=== PATIENT | female | born 1990 | race Caucasian/White ===

== ENCOUNTER 2020-03-30 08:53 | Inpatient (IN) ==
--- NOTE | 2020-03-30 10:11 | Obstetrical Progress Note ---
Date of Service March 30, 2020 Subjective Met pt and spouse Reviewed PNC SROM at 0700HRS - Clear fluid on 03/30/20 FHR; CAT1 CTx; Minimal VE; ft/thick/anterior EFW 7-8Lbs Bedside sono : VT GBS culx repeated discussed Ancef use . pt had hx of PCN rxn- Rash discussed Ancef has 4-10% cross reactivity. Pt has agrees to try Ancef Results & Data ([facility]) Vital Signs (Past 12 Hours) Vital Signs Temp Pulse Resp BP 03/30/20 09:13 37.0 C 88 20 130/70 03/30/20 09:04 88 130/70
[2020-03-30] MEDS ORDERED: OXYTOCIN 30 UNITS/500 ML BAG IV PRN ×2 (10:12→12:37)
[2020-03-30] MEDS ORDERED: CEFAZOLIN 2000MG 2,000 MG/15 ML SYR IV ONE (10:30)
[2020-03-30 10:32] LABS: Hematocrit (blood only) 36.7 % (37-47); Hemoglobin 12.1 g/dL (12.0-16.0); Mean Corpuscular Hemoglobin 26.8 pg (25-34); Mean Corpuscular Volume 81.2 fL (80-100); Platelet Count 323 K/uL (130-400); RDW Coefficient of Variation 15.5 % (11.5-14.5); RDW Standard Deviation 45.2 fL (36.4-46.3); Red Blood Count 4.52 M/uL (4.2-5.4); White Blood Count 10.86 K/uL (4.8-10.8)
[2020-03-30 10:49] LABS: Alanine Aminotransferase 19 U/L (12-78); Albumin Level 2.5 gm/dl (3.4-5.0); Aspartate Aminotransferase 14 U/L (15-37); BUN Creatinine Ratio 21.8 (10-20); Blood Urea Nitrogen 11 mg/dl (7-18); Calcium 9.3 mg/dl (8.5-10.1); Carbon Dioxide 20 mmol/L (21-32); Chloride 106 mmol/L (98-107); Creatinine Clr Calc Pharmacy 231.1 ml/min; Est GFR (African American) > 150.0; Est GFR (Non-African American) 131.7; Glucose 75 mg/dl (70-99); Potassium 3.9 mmol/L (3.5-5.1); Sodium 138 mmol/L (136-145)
[2020-03-30 10:52] LABS: Albumin Globulin Ratio 0.6 (0.9-2); Alkaline Phosphatase 94 U/L (45-117); Bilirubin,Total 0.2 mg/dl (0.2-1); Globulin 4.5 gm/dl (2.5-4.0)
[2020-03-30] MEDS: LACTATED RINGER'S 1,000 ML IV PRN ×3 (11:22→23:01)
--- NOTE | 2020-03-30 12:09 | Obstetrical Progress Note ---
Date of Service March 30, 2020 Assessment & Plan Admission and Anticipated Discharge Date Admission Date: March 30, 2020 Subjective Pt doing well FHR; CAT1 SROM @ 0700HRS Minimal ctx VE; cervix is thick and closed [place] bulb placed in cervix w/o difficulty 30 CC saline in bulb will start Pitocin augmentation Results & Data ([facility]) Vital Signs (Past 12 Hours) Vital Signs Temp Pulse Resp BP 03/30/20 11:25 36.9 C 82 18 03/30/20 11:24 82 122/69 03/30/20 09:13 37.0 C 88 20 130/70 03/30/20 09:04 88 130/70
--- NOTE | 2020-03-30 22:15 | Obstetrical Progress Note ---
Date of Service March 30, 2020 Assessment & Plan Admission and Anticipated Discharge Date Admission Date: March 30, 2020 Subjective Pt doing well FHR; CAT1 Ctx; 2-4mins VE: 5/75/-1 Pit 20Mu Will continue with pit augmentation Pit limit increased to 30 MU Results & Data ([facility]) Vital Signs (Past 12 Hours) Vital Signs Temp Pulse Resp BP 03/30/20 22:08 79 142/68 H 03/30/20 21:10 36.8 C 18 03/30/20 21:09 82 123/75 03/30/20 20:10 85 18 127/68 03/30/20 19:15 36.7 C 78 20 129/77 03/30/20 18:10 85 120/69 03/30/20 17:09 36.8 C 85 20 128/70 03/30/20 16:13 78 131/76 03/30/20 15:10 91 H 138/77 03/30/20 14:11 82 119/74 03/30/20 13:09 36.9 C 87 18 127/62 03/30/20 12:08 84 129/65 03/30/20 11:25 36.9 C 82 18 03/30/20 11:24 82 122/69
[2020-03-30] MEDS ORDERED: BUPIVACAINE 0.25% 30 ML VIAL ONE (22:22)
[2020-03-30] MEDS ORDERED: fentaNYL citrate 100 MCG/2 ML VIAL ONE (22:22)
[2020-03-30] MEDS ORDERED: ePHEDrine sulfate 50 MG/ML AMP ONE (22:22)
[2020-03-30] MEDS ORDERED: fentaNYL 2MCG/ML ROPIV 1.25MG/ML 100 ML BAG EPI ONE (22:23)
[2020-03-30] MEDS ORDERED: Nursing to Pharmacy Communication ONE (22:25)
[2020-03-30] MEDS ORDERED: NALOXONE HCL 1 MG in SODIUM CHLORIDE 0.9% 1000ML 1,000 ML IV PRN (23:22)
[2020-03-30] MEDS ORDERED: PROMETHAZINE HCL 6.25 MG in SODIUM CHLORIDE 0.9% 50 ML IV PRN (23:22)
[2020-03-30] MEDS ORDERED: ONDANSETRON INJ 2 MG/ML 2 ML VIAL IV PRN (23:22)
[2020-03-30] MEDS ORDERED: ePHEDrine sulfate 50 MG/ML AMP IV PRN (23:22)
[2020-03-30] MEDS ORDERED: NALBUPHINE HCL INJ 10 MG/ML AMP IV PRN (23:22)
[2020-03-30] MEDS ORDERED: fentaNYL 2MCG/ML ROPIV 1.25MG/ML 100 ML BAG EPI PRN (23:22)
[2020-03-30] MEDS ORDERED: NALOXONE HCL 0.4 MG/1 ML VIAL/CARP IV PRN (23:22)
[2020-03-30] MEDS ORDERED: DiphenhydrAMINE HCL 50 MG/ML VIAL IV PRN (23:22)
--- NOTE | 2020-03-30 23:22 | Anesthesiology Consultation ---
Date of Service March 30, 2020 Assessment & Plan Chart Review Chart Review: Patient NOT seen in Pre Admission Testing and Acceptable Risk for Labor Epidural Consults Requested none ASA ASA3 Proposed Anesthesia Anesthesia Type: Labor Epidural Risk / Benefits Reviewed With: PT / POA / Parent / Guardian, Accepts Plan and Informed Consent Obtained History Height/Weight Height: 5 ft 3 in Weight: 137.438 kg Allergies Allergy/AdvReac Type Severity Reaction Status Date / Time Penicillins Allergy Unknown Unverified 12/15/09 02:21 Medications Home Medications Medication Instructions Recorded Confirmed Last Taken PNV cmb#95-ferrous fumarate-FA 1 tab PO DAILY 03/30/20 03/30/20 03/30/20 08:00 [] metformin 1,000 mg PO BID 03/30/20 03/30/20 03/30/20 08:00 Active Medications Generic Name Dose Route Start Last Admin Trade Name Freq PRN Reason Stop Dose Admin Lactated Ringer's 1,000 mls @ 125 mls/hr 03/30/20 10:12 03/30/20 23:01 Lr IV 04/01/20 10:11 125 mls/hr .Q8H PRN Administration L&D Protocol Protocol Oxytocin 30 units in 500 mls @ 20 mls/hr 03/30/20 12:37 03/30/20 20:20 Pitocin IV 04/29/20 12:36 1.2 units/hr .Q24H PRN 20 mls/hr Labor Induction/Augmentation Titration Protocol 1.2 UNITS/HR NPO Date Last Intake of Fluids: 03/30/20 Time Last Intake of Fluids: 21:00 Date Last Intake of Solids: 03/30/20 Time Last Intake of Solids: 08:00 Past Medical History Medical History Diabetes mellitus, type 2 Exercise / Class Metabolic Activity II 4-5 Yardwork/Stairs/Walk up hill Past Anesthesia History No Hx of Anesthesia Complications and No Family Hx of Anesthesia Complications History of PONV No Hx of PONV and No Hx of Motion Sickness Social History Smoking Status: Never smoker Do You Dip or Chew Tobacco: No Hx Alcohol Use: No Hx Substance Use: No Physical Exam Vital Signs Last Vital Signs Temp 36.8 C 03/30/20 21:10 Pulse 85 03/30/20 23:19 Resp 18 03/30/20 22:08 BP 119/61 03/30/20 23:19 Pulse Ox 98 03/30/20 23:17 ENMT Mouth: no dentition abnormality Thyromental Distance: > or= 3.5 Finger Breadths Mallampati Class: II Neck normal visual inspection Respiratory normal respiratory effort Auscultation: lungs clear to auscultation bilaterally Cardiovascular Rate/Rhythm: regular rate and regular rhythm Psychiatric Orientation: alert Testing Laboratory Results 03/30/20 10:18 03/30/20 10:18 03/30/20 03/30/20 18:11 13:53 POC Glucose 75 72
[2020-03-31] MEDS ORDERED: OXYTOCIN 20 UNITS in LACTATED RINGER'S 1,000 ML IV SCH (00:17)
[2020-03-31] MEDS: CEFAZOLIN 1000MG 1,000 MG/7.5 ML SYR IV PRN ×2 (01:36→09:46)
[2020-03-31] MEDS ORDERED: CEFAZOLIN 3000MG 65 ML IV SCH (06:00)
[2020-03-31] MEDS ORDERED: CITRIC ACID/SODIUM CITRATE 15 ML UDC PO SCH (06:00)
--- NOTE | 2020-03-31 06:48 | Obstetrical Progress Note ---
Date of Service March 31, 2020 Assessment & Plan Admission and Anticipated Discharge Date Admission Date: March 30, 2020 Subjective Pt doing well Epidural in place FHR;CAT1 CTX 2-3MINS PIT; 30MU VE 5-6/50-/-1 IUPC and scalp electrode placed Results & Data ([facility]) Vital Signs (Past 12 Hours) Vital Signs Temp Pulse Resp BP Pulse Ox 03/31/20 06:44 74 134/78 03/31/20 06:42 78 98 03/31/20 06:37 78 99 03/31/20 06:32 82 97 03/31/20 06:30 69 132/79 03/31/20 06:27 79 99 03/31/20 06:25 18 03/31/20 06:22 69 98 03/31/20 06:17 75 99 03/31/20 06:14 75 142/79 H 03/31/20 06:12 71 98 03/31/20 06:07 74 98 03/31/20 06:02 74 98 03/31/20 05:59 76 126/78 03/31/20 05:57 74 99 03/31/20 05:55 16 03/31/20 05:52 75 98 03/31/20 05:47 74 98 03/31/20 05:44 81 123/68 03/31/20 05:42 75 99 03/31/20 05:37 81 99 03/31/20 05:32 72 99 03/31/20 05:30 75 124/62 03/31/20 05:27 73 98 03/31/20 05:25 20 03/31/20 05:22 95 H 99 03/31/20 05:17 76 99 03/31/20 05:15 36.8 C 03/31/20 05:14 74 131/82 03/31/20 05:12 77 99 03/31/20 05:07 81 99 03/31/20 05:02 77 98 03/31/20 05:01 75 123/61 03/31/20 04:57 82 99 03/31/20 04:55 18 03/31/20 04:52 77 99 03/31/20 04:47 82 99 03/31/20 04:45 70 133/75 03/31/20 04:42 85 99 03/31/20 04:37 83 98 05/22/20 04:32 77 98 05/22/20 04:29 90 136/87 05/22/20 04:27 80 96 05/22/20 04:26 79 93 05/22/20 04:25 16 05/22/20 04:22 79 96 05/22/20 04:17 75 96 05/22/20 04:15 76 130/79 05/22/20 04:12 78 96 05/22/20 04:07 79 95 05/22/20 04:02 76 95 05/22/20 03:59 81 122/70 05/22/20 03:57 77 96 05/22/20 03:55 16 05/22/20 03:52 80 96 05/22/20 03:47 80 96 05/22/20 03:44 69 125/72 05/22/20 03:42 74 97 05/22/20 03:37 75 96 05/22/20 03:32 78 95 05/22/20 03:29 76 132/70 05/22/20 03:27 79 95 05/22/20 03:25 16 05/22/20 03:22 80 97 05/22/20 03:20 36.9 C 05/22/20 03:19 78 94 05/22/20 03:17 79 95 05/22/20 03:14 74 126/73 05/22/20 03:12 79 95 05/22/20 03:10 81 93 05/22/20 03:07 79 95 05/22/20 03:03 78 94 05/22/20 03:02 80 95 05/22/20 02:59 77 120/67 05/22/20 02:57 78 95 05/22/20 02:56 74 94 05/22/20 02:55 18 05/22/20 02:52 80 96 05/22/20 02:47 78 96 05/22/20 02:44 75 124/69 94 05/22/20 02:42 78 96 05/22/20 02:37 73 96 05/22/20 02:32 76 97 05/22/20 02:29 63 132/75 05/22/20 02:27 72 97 05/22/20 02:25 18 05/22/20 02:22 79 97 05/22/20 02:17 72 97 05/22/20 02:14 68 136/67 05/22/20 02:12 71 98 05/22/20 02:07 70 98 05/22/20 02:02 76 98 05/22/20 01:59 71 140/76 05/22/20 01:57 71 98 05/22/20 01:55 18 05/22/20 01:52 75 97 05/22/20 01:47 103 H 99 05/22/20 01:44 73 138/79 05/22/20 01:42 75 99 05/22/20 01:37 74 98 05/22/20 01:32 70 97 05/22/20 01:29 66 136/75 05/22/20 01:27 71 98 05/22/20 01:25 16 05/22/20 01:22 74 97 05/22/20 01:17 36.8 C 77 98 05//20 01:14 68 130/70 05/22/20 01:12 74 97 05/22/20 01:07 74 97 05/ 01:02 75 98 05/22/20 00:59 72 128/79 05/22/20 00:57 76 98 05/22/20 00:55 16 05/22/20 00:52 69 98 05/22/20 00:47 80 98 05/22/20 00:43 77 16 126/74 05/22/20 00:42 88 99 05/22/20 00:37 75 98 05/22/20 00:34 75 90 05/22/20 00:32 69 97 05/22/20 00:27 70 97 05/22/20 00:25 16 05/22/20 00:22 74 98 05/22/20 00:19 70 109/57 L 05/22/20 00:18 16 05/22/20 00:17 71 97 05/22/20 00:12 68 98 05/22/20 00:07 71 98 05/22/20 00:03 82 16 110/63 05/22/20 00:02 79 97 05/21/20 23:57 67 98 05/21/20 23:55 16 05/21/20 23:52 69 99 05/21/20 23:48 81 111/69 05/21/20 23:47 69 18 99 05/21/20 23:42 73 99 05/21/20 23:37 73 98 03/30/20 23:32 82 16 118/61 98 03/30/20 23:27 80 18 120/64 99 03/30/20 23:22 85 98 03/30/20 23:21 82 16 115/67 03/30/20 23:19 85 16 119/61 03/30/20 23:17 82 18 121/61 98 03/30/20 23:16 36.7 C 03/30/20 23:15 86 18 125/60 03/30/20 23:12 87 18 130/84 99 03/30/20 23:07 93 H 99 03/30/20 23:02 98 H 98 03/30/20 22:57 82 98 03/30/20 22:08 79 18 142/68 H 03/30/20 21:10 36.8 C 18 03/30/20 21:09 82 123/75 03/30/20 20:10 85 18 127/68 03/30/20 19:15 36.7 C 78 20 129/77
[2020-03-31] MEDS: LACTATED RINGER'S 1,000 ML IV PRN (06:57)
--- NOTE | 2020-03-31 07:50 | Obstetrical Progress Note ---
Date of Service March 31, 2020 Assessment & Plan Admission and Anticipated Discharge Date Admission Date: March 30, 2020 Results & Data ([facility]) Vital Signs (Past 12 Hours) Vital Signs Temp Pulse Resp BP Pulse Ox 03/31/20 07:48 74 98 03/31/20 07:47 75 108/55 L 03/31/20 07:46 76 89 L 03/31/20 07:43 79 97 03/31/20 07:38 78 97 03/31/20 07:33 79 98 03/31/20 07:29 76 116/63 03/31/20 07:28 75 97 03/31/20 07:23 88 99 03/31/20 07:20 76 91 03/31/20 07:17 79 97 03/31/20 07:15 72 128/76 03/31/20 07:12 77 96 03/31/20 07:07 79 99 03/31/20 07:02 77 99 03/31/20 06:59 75 124/73 03/31/20 06:57 74 99 03/31/20 06:52 81 99 03/31/20 06:47 76 100 03/31/20 06:44 74 134/78 03/31/20 06:42 78 98 03/31/20 06:37 78 99 03/31/20 06:32 82 97 03/31/20 06:30 69 132/79 03/31/20 06:27 79 99 03/31/20 06:25 18 03/31/20 06:22 69 98 03/31/20 06:17 75 99 03/31/20 06:14 75 142/79 H 03/31/20 06:12 71 98 03/31/20 06:07 74 98 03/31/20 06:02 74 98 03/31/20 05:59 76 126/78 03/31/20 05:57 74 99 03/31/20 05:55 16 03/31/20 05:52 75 98 03/31/20 05:47 74 98 03/31/20 05:44 81 123/68 03/31/20 05:42 75 99 03/31/20 05:37 81 99 03/31/20 05:32 72 99 03/31/20 05:30 75 124/62 03/31/20 05:27 73 98 05/22/20 05:25 20 05//20 05:22 95 H 99 05//20 05:17 76 99 05//20 05:15 36.8 C 0520 05:14 74 131/82 05/20 05:12 77 99 05/20 05:07 81 99 05/20 05:02 77 98 05/20 05:01 75 123/61 0522/20 04:57 82 99 0522/20 04:55 18 0520 04:52 77 99 05/20 04:47 82 99 05/20 04:45 70 133/75 0522/20 04:42 85 99 0522/20 04:37 83 98 05/20 04:32 77 98 05/20 04:29 90 136/87 05/20 04:27 80 96 05/20 04:26 79 93 0522/20 04:25 16 0522/20 04:22 79 96 0520 04:17 75 96 0520 04:15 76 130/79 0522/20 04:12 78 96 05/20 04:07 79 95 0522/20 04:02 76 95 0522/20 03:59 81 122/70 0522/20 03:57 77 96 05/20 03:55 16 05/20 03:52 80 96 05/20 03:47 80 96 05/22/20 03:44 69 125/72 0522/20 03:42 74 97 05/20 03:37 75 96 05/20 03:32 78 95 0522/20 03:29 76 132/70 0522/20 03:27 79 95 05/22/20 03:25 16 0522/20 03:22 80 97 05/22/20 03:20 36.9 C 0520 03:19 78 94 05/22/20 03:17 79 95 05/22/20 03:14 74 126/73 0522/20 03:12 79 95 05/22/20 03:10 81 93 0522/20 03:07 79 95 0522/20 03:03 78 94 0522/20 03:02 80 95 05/22/20 02:59 77 120/67 05/22/20 02:57 78 95 05/22/20 02:56 74 94 05/22/20 02:55 18 05/22/20 02:52 80 96 05/22/20 02:47 78 96 05/22/20 02:44 75 124/69 94 05/22/20 02:42 78 96 05/22/20 02:37 73 96 05/22/20 02:32 76 97 05/22/20 02:29 63 132/75 05/22/20 02:27 72 97 05/22/20 02:25 18 05/22/20 02:22 79 97 05/22/20 02:17 72 97 05/22/20 02:14 68 136/67 05/22/20 02:12 71 98 05/22/20 02:07 70 98 05/22/20 02:02 76 98 05/22/20 01:59 71 140/76 05/22/20 01:57 71 98 05/22/20 01:55 18 05/22/20 01:52 75 97 05/22/20 01:47 103 H 99 05/22/20 01:44 73 138/79 05/22/20 01:42 75 99 05/22/20 01:37 74 98 05/22/20 01:32 70 97 05/22/20 01:29 66 136/75 05/22/20 01:27 71 98 05/22/20 01:25 16 05/22/20 01:22 74 97 05/22/20 01:17 36.8 C 77 98 05/22/20 01:14 68 130/70 05/22/20 01:12 74 97 05/22/20 01:07 74 97 05/22/20 01:02 75 98 05/22/20 00:59 72 128/79 05/22/20 00:57 76 98 05/22/20 00:55 16 05/22/20 00:52 69 98 05/22/20 00:47 80 98 05/22/20 00:43 77 16 126/74 05/22/20 00:42 88 99 05/22/20 00:37 75 98 05/22/20 00:34 75 90 05/22/20 00:32 69 97 05/22/20 00:27 70 97 05/22/20 00:25 16 03/31/20 00:22 74 98 05 00:19 70 109/57 L 03/31/20 00:18 16 03/31/20 00:17 71 97 03/31/20 00:12 68 98 03/31/20 00:07 71 98 03/31/20 00:03 82 16 110/63 03/31/20 00:02 79 97 03/30/20 23:57 67 98 03/30/20 23:55 16 03/30/20 23:52 69 99 03/30/20 23:48 81 111/69 05 23:47 69 18 99 03/30/20 23:42 73 99 03/30/20 23:37 73 98 03/30/20 23:32 82 16 118/61 98 03/30/20 23:27 80 18 120/64 99 03/30/20 23:22 85 98 03/30/20 23:21 82 16 115/67 03/30/20 23:19 85 16 119/61 05 23:17 82 18 121/61 98 03/30/20 23:16 36.7 C 03/30/20 23:15 86 18 125/60 03/30/20 23:12 87 18 130/84 99 03/30/20 23:07 93 H 99 03/30/20 23:02 98 H 98 03/30/20 22:57 82 98 03/30/20 22:08 79 18 142/68 H 03/30/20 21:10 36.8 C 18 03/30/20 21:09 82 123/75 05 20:10 85 18 127/68
[2020-03-31] MEDS: METFORMIN HCL 500 MG TAB PO SCH ×2 (08:17→19:29)
--- NOTE | 2020-03-31 08:22 | History & Physical Report ---
Date of Service March 31, 2020 Assessment & Plan (1) Premature rupture of membranes: 30 yo at 38.4 wks with type II DM, morbid obesity Admitted yesterday with PROM at 0700, on Ancef VSS Afebrile Off pitocin with no ctxs No cervical change per prior exams Discussed continue with pitocin vs ceserean section Discussed C section is a mjor surgery with risks of bleeding, infection, injury to surrounding organs, bowel, bladder, blood cloths She wants to continue with pitocin and recheck after adequate contractions and then decide All questions were answered (2) Pre-existing diabetes mellitus affecting in third trimester, antepartum: History of Present Illness Primary Care Provider: Rahat Quintana MD Patient is a 30 yo at 38.4 wks who was admitted yesterday by Dr Vincent after SROM at 0700 Her cervix was unfavorable, received chatman bulb and pitocin IUPC and FSE were placed this am Pitocin was stopped at 0658 after recurrent early decels FHR recovered She has epidural for pain and comfortable now Her has been complicated by 1) Class III obesity 2) Type II Pregestational diabetes, on metformin 3) GBS inconclusive, on Cefazolin She denies other medical problems, surgeries, smoking/ alcohol or drug use No h/o STD's No fever/ chills/ N&V/ BASSETT/ Change is vision Allergies Allergy/AdvReac Type Severity Reaction Status Date / Time Penicillins Allergy Unknown Unverified 12/15/09 02:21 Home Medications Home Medications Medication Instructions Recorded Confirmed Type PNV cmb#95-ferrous fumarate-FA 1 tab PO DAILY 03/30/20 03/30/20 History [] metformin 1,000 mg PO BID 03/30/20 03/30/20 History Patient History Medical History Diabetes mellitus, type 2 Social History Preferred Language: Iranian Communication Ability: Effective 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 Beliefs That Will Affect Care: None marital status: Current Living Situation: Spouse Other Information That Helps Us Care for You: No Feels Safe at Home: Yes Safety Concerns: Feels Safe At This Time Smoking Status: Never smoker Do You Dip or Chew Tobacco: No ; Second Hand Exposure: No ; Tobacco Cessation Education Requested by Patient: No Hx Alcohol Use: No Hx Substance Use: No Review of Systems All systems reviewed & are unremarkable except as noted in HPI & below Physical Exam Constitutional: WD/WN, vitals as above well developed, well nourished and + acute distress (Comfortable, NAD) Gastrointestinal (Abdomen): Abd: soft, NT, large panus Results & Data Vital Signs (Past 12 Hours) Vital Signs Temp Pulse Resp BP Pulse Ox 03/31/20 08:08 81 99 03/31/20 08:03 74 98 03/31/20 07:59 76 108/56 L 03/31/20 07:58 74 98 03/31/20 07:53 72 98 03/31/20 07:48 74 98 03/31/20 07:47 75 108/55 L 03/31/20 07:46 76 89 L 03/31/20 07:43 79 97 03/31/20 07:38 78 97 03/31/20 07:33 79 98 03/31/20 07:29 76 116/63 03/31/20 07:28 75 97 03/31/20 07:23 88 99 03/31/20 07:20 76 91 03/31/20 07:17 79 97 03/31/20 07:15 72 128/76 03/31/20 07:12 77 96 03/31/20 07:07 79 99 03/31/20 07:02 77 99 03/31/20 06:59 75 124/73 03/31/20 06:57 74 99 03/31/20 06:52 81 99 03/31/20 06:47 76 100 03/31/20 06:44 74 134/78 03/31/20 06:42 78 98 03/31/20 06:37 78 99 03/31/20 06:32 82 97 03/31/20 06:30 69 132/79 03/31/20 06:27 79 99 03/31/20 06:25 18 03/31/20 06:22 69 98 03/31/20 06:17 75 99 03/31/20 06:14 75 142/79 H 03/31/20 06:12 71 98 03/31/20 06:07 74 98 05/22/20 06:02 74 98 05/22/20 05:59 76 126/78 05/22/20 05:57 74 99 05/22/20 05:55 16 05/22/20 05:52 75 98 05/22/20 05:47 74 98 05/22/20 05:44 81 123/68 05/22/20 05:42 75 99 05/22/20 05:37 81 99 05/22/20 05:32 72 99 05//20 05:30 75 124/62 0522/20 05:27 73 98 05/20 05:25 20 0522/20 05:22 95 H 99 05//20 05:17 76 99 05//20 05:15 36.8 C 05 05:14 74 131/82 05/20 05:12 77 99 05/20 05:07 81 99 05/20 05:02 77 98 05//20 05:01 75 123/61 0522/20 04:57 82 99 0522/20 04:55 18 0522/20 04:52 77 99 05/22/20 04:47 82 99 05/22/20 04:45 70 133/75 05/22/20 04:42 85 99 05/22/20 04:37 83 98 05/22/20 04:32 77 98 05/22/20 04:29 90 136/87 05/22/20 04:27 80 96 05/22/20 04:26 79 93 05/22/20 04:25 16 05/22/20 04:22 79 96 05/22/20 04:17 75 96 05/22/20 04:15 76 130/79 05/22/20 04:12 78 96 05/22/20 04:07 79 95 05/22/20 04:02 76 95 05/22/20 03:59 81 122/70 05/22/20 03:57 77 96 05/22/20 03:55 16 05/22/20 03:52 80 96 05/22/20 03:47 80 96 05/22/20 03:44 69 125/72 05/22/20 03:42 74 97 05/22/20 03:37 75 96 05/22/20 03:32 78 95 05/22/20 03:29 76 132/70 05/22/20 03:27 79 95 05/22/20 03:25 16 05/22/20 03:22 80 97 05/22/20 03:20 36.9 C 05/22/20 03:19 78 94 05/22/20 03:17 79 95 05/22/20 03:14 74 126/73 05/22/20 03:12 79 95 05/22/20 03:10 81 93 05/22/20 03:07 79 95 05/22/20 03:03 78 94 05/22/20 03:02 80 95 05/22/20 02:59 77 120/67 05/22/20 02:57 78 95 05/22/20 02:56 74 94 05/22/20 02:55 18 05/22/20 02:52 80 96 05/22/20 02:47 78 96 05/22/20 02:44 75 124/69 94 05/22/20 02:42 78 96 05/22/20 02:37 73 96 05/22/20 02:32 76 97 05/22/20 02:29 63 132/75 05/22/20 02:27 72 97 05/22/20 02:25 18 05/22/20 02:22 79 97 05/22/20 02:17 72 97 05/22/20 02:14 68 136/67 05/22/20 02:12 71 98 05/22/20 02:07 70 98 05/22/20 02:02 76 98 05/22/20 01:59 71 140/76 05/22/20 01:57 71 98 05/22/20 01:55 18 05/22/20 01:52 75 97 05/22/20 01:47 103 H 99 05/22/20 01:44 73 138/79 05/22/20 01:42 75 99 05/22/20 01:37 74 98 05/22/20 01:32 70 97 05/22/20 01:29 66 136/75 05/22/20 01:27 71 98 05/22/20 01:25 16 05/22/20 01:22 74 97 05/22/20 01:17 36.8 C 77 98 05/22/20 01:14 68 130/70 05/22/20 01:12 74 97 05/22/20 01:07 74 97 05/22/20 01:02 75 98 03/31/20 00:59 72 128/79 03/31/20 00:57 76 98 03/31/20 00:55 16 03/31/20 00:52 69 98 03/31/20 00:47 80 98 03/31/20 00:43 77 16 126/74 03/31/20 00:42 88 99 03/31/20 00:37 75 98 03/31/20 00:34 75 90 03/31/20 00:32 69 97 03/31/20 00:27 70 97 03/31/20 00:25 16 03/31/20 00:22 74 98 03/31/20 00:19 70 109/57 L 03/31/20 00:18 16 03/31/20 00:17 71 97 03/31/20 00:12 68 98 03/31/20 00:07 71 98 03/31/20 00:03 82 16 110/63 03/31/20 00:02 79 97 03/30/20 23:57 67 98 03/30/20 23:55 16 03/30/20 23:52 69 99 03/30/20 23:48 81 111/69 03/30/20 23:47 69 18 99 03/30/20 23:42 73 99 03/30/20 23:37 73 98 03/30/20 23:32 82 16 118/61 98 03/30/20 23:27 80 18 120/64 99 03/30/20 23:22 85 98 03/30/20 23:21 82 16 115/67 05 23:19 85 16 119/61 05 23:17 82 18 121/61 98 03/30/20 23:16 36.7 C 03/30/20 23:15 86 18 125/60 05 23:12 87 18 130/84 99 03/30/20 23:07 93 H 99 03/30/20 23:02 98 H 98 03/30/20 22:57 82 98 03/30/20 22:08 79 18 142/68 H 03/30/20 21:10 36.8 C 18 03/30/20 21:09 82 123/75 Laboratory Results Lab Results 03/30/20 05 05 Range/Units 10:18 10:18 13:53 WBC 10.86 H (4.8-10.8) K/uL RBC 4.52 (4.2-5.4) M/uL Hgb 12.1 (12.0-16.0) g/dL Hct 36.7 L (37-47) % MCV 81.2 (80-100) fL MCH 26.8 (25-34) pg MCHC 33.0 (32-36) g/dL RDW Std Deviation 45.2 (36.4-46.3) fL RDW Coeff of Eugenia 15.5 H (11.5-14.5) % Plt Count 323 (130-400) K/uL MPV 9.0 (7.4-10.4) fL Sodium 138 (136-145) mmol/L Potassium 3.9 (3.5-5.1) mmol/L Chloride 106 (98-107) mmol/L Carbon Dioxide 20 L (21-32) mmol/L Anion Gap 11.0 (3-11) BUN 11 (7-18) mg/dl Creatinine 0.49 L (0.6-1.2) mg/dl Est Cr Clr Drug Dosing 231.1 ml/min Est GFR ( Amer) > 150.0 Est GFR (Non-Af Amer) 131.7 BUN/Creatinine Ratio 21.8 H (10-20) Glucose 75 (70-99) mg/dl POC Glucose 72 (70-99) mg/dl Calcium 9.3 (8.5-10.1) mg/dl Total Bilirubin 0.2 (0.2-1) mg/dl AST 14 L (15-37) U/L ALT 19 (12-78) U/L Alkaline Phosphatase 94 (45-117) U/L Total Protein 7.0 (6.4-8.2) gm/dl Albumin 2.5 L (3.4-5.0) gm/dl Globulin 4.5 H (2.5-4.0) gm/dl Albumin/Globulin Ratio 0.6 L (0.9-2) 03/30/20 03/30/20 03/31/20 Range/Units 18:11 23:29 05:32 WBC (4.8-10.8) K/uL RBC (4.2-5.4) M/uL Hgb (12.0-16.0) g/dL Hct (37-47) % MCV (80-100) fL MCH (25-34) pg MCHC (32-36) g/dL RDW Std Deviation (36.4-46.3) fL RDW Coeff of Eugenia (11.5-14.5) % Plt Count (130-400) K/uL MPV (7.4-10.4) fL Sodium (136-145) mmol/L Potassium (3.5-5.1) mmol/L Chloride (98-107) mmol/L Carbon Dioxide (21-32) mmol/L Anion Gap (3-11) BUN (7-18) mg/dl Creatinine (0.6-1.2) mg/dl Est Cr Clr Drug Dosing ml/min Est GFR ( Amer) Est GFR (Non-Af Amer) BUN/Creatinine Ratio (10-20) Glucose (70-99) mg/dl POC Glucose 75 91 85 (70-99) mg/dl Calcium (8.5-10.1) mg/dl Total Bilirubin (0.2-1) mg/dl AST (15-37) U/L ALT (12-78) U/L Alkaline Phosphatase (45-117) U/L Total Protein (6.4-8.2) gm/dl Albumin (3.4-5.0) gm/dl Globulin (2.5-4.0) gm/dl Albumin/Globulin Ratio (0.9-2) Code Status & VTE Plan VTE Prophylaxis Plan VTE Prophylaxis will be ordered: No Monitoring External Monitor 130-140's, no more decels for the last hour Tocodynamometer Ctxs spaced out since pitocin was stopped
[2020-03-31 08:53] LABS: Basophils # (auto) 0.02 K/uL (0-0.2); Basophils % (auto) 0.2 %; Eosinophils # (auto) 0.04 K/uL (0-0.5); Eosinophils % (auto) 0.3 %; Hematocrit (blood only) 33.7 % (37-47); Hemoglobin 11.4 g/dL (12.0-16.0); Immature Granulocytes # (auto) 0.03 K/uL (0.00-0.02); Immature Granulocytes % (auto) 0.3 %; Lymphocytes % (auto) 14.2 %; Mean Corpuscular Hemoglobin 27.2 pg (25-34); Mean Corpuscular Hgb Conc 33.8 g/dL (32-36); Mean Corpuscular Volume 80.4 fL (80-100); Monocytes # (auto) 0.56 K/uL (0.11-0.59); Monocytes % (auto) 4.7 %; Neutrophils # (auto) 9.63 K/uL (1.4-6.5); Neutrophils % (auto) 80.3 %; Platelet Count 275 K/uL (130-400); RDW Coefficient of Variation 15.5 % (11.5-14.5); RDW Standard Deviation 45.1 fL (36.4-46.3); Red Blood Count 4.19 M/uL (4.2-5.4); White Blood Count 11.98 K/uL (4.8-10.8)
[2020-03-31] MEDS ORDERED: CALCIUM CARBONATE 500 MG CHEWABLE TAB PO PRN (11:39)
[2020-03-31] MEDS ORDERED: CLINDAMYCIN 900 MG in DEXTROSE 5% 50 ML IV ONE (12:59)
--- NOTE | 2020-03-31 12:59 | Obstetrical Progress Note ---
Date of Service March 31, 2020 Assessment & Plan Admission and Anticipated Discharge Date Admission Date: March 30, 2020 Subjective Patient is reevaluated She felt rectal pressure VSS Afebrile VE: 6/ 70%/ -2, ballotable head FHR 150's, categ I [place]: ctxs q 3 min, 210 MVU/ 10 min AP: 30 yo at 38.4 wks with PROM since 7 am yesterday morning, no cervical change despite pitocin for 24 hours, adequate ctxs Recommended delivery via section Discussed he risks, she understands and signs the informed consent All questions were answered Results & Data ([place]) Vital Signs (Past 12 Hours) Vital Signs Temp Pulse Resp BP Pulse Ox 03/31/20 12:53 84 98 03/31/20 12:48 78 99 03/31/20 12:45 75 132/64 03/31/20 12:43 79 97 03/31/20 12:42 78 93 03/31/20 12:38 78 98 03/31/20 12:33 78 99 03/31/20 12:29 70 112/55 L 03/31/20 12:28 76 97 03/31/20 12:25 77 93 03/31/20 12:23 75 98 03/31/20 12:18 78 98 03/31/20 12:14 77 118/62 03/31/20 12:13 78 99 03/31/20 12:08 84 99 03/31/20 12:03 76 98 03/31/20 11:59 74 111/57 L 03/31/20 11:58 78 98 03/31/20 11:56 70 93 03/31/20 11:53 78 98 03/31/20 11:48 82 99 03/31/20 11:44 79 115/62 92 03/31/20 11:43 77 98 03/31/20 11:38 70 98 03/31/20 11:37 79 92 03/31/20 11:33 76 97 03/31/20 11:29 71 111/61 03/31/20 11:28 81 97 03/31/20 11:23 78 96 03/31/20 11:18 74 99 03/31/20 11:15 68 108/62 03/31/20 11:13 73 100 03/31/20 11:08 75 98 05/22/20 11:03 74 99 05/22/20 10:59 72 115/56 L 05/22/20 10:58 71 99 05/22/20 10:53 73 99 05/22/20 10:48 73 99 05/22/20 10:44 71 111/56 L 05/22/20 10:43 72 98 05/22/20 10:38 75 98 05/22/20 10:33 79 98 05/22/20 10:30 77 20 119/57 L 05/22/20 10:28 72 98 05/22/20 10:24 86 90 05/22/20 10:23 85 95 05/22/20 10:18 79 99 05/22/20 10:14 74 106/55 L 05/22/20 10:13 73 98 05/22/20 10:08 76 98 05/22/20 10:03 74 99 05/22/20 09:59 79 102/57 L 05/22/20 09:58 76 98 05/22/20 09:53 74 98 05/22/20 09:48 74 98 05/22/20 09:44 75 102/59 L 05/22/20 09:43 78 97 05/22/20 09:38 73 98 05/22/20 09:33 72 98 05/22/20 09:29 75 18 102/57 L 05//20 09:28 70 99 05/22/20 09:23 89 90 05/22/20 09:18 75 98 05/22/20 09:15 77 108/59 L 05/22/20 09:14 81 91 05/22/20 09:13 81 98 05/22/20 09:08 73 97 05/22/20 09:03 68 97 05/22/20 09:00 70 115/62 05/22/20 08:58 76 98 05/22/20 08:53 68 98 05/22/20 08:48 76 98 05/22/20 08:44 72 113/61 05/22/20 08:43 74 98 05/22/20 08:38 73 98 05/22/20 08:33 71 99 05/22/20 08:29 71 18 114/58 L 05/22/20 08:28 74 96 05/22/20 08:23 71 98 05/22/20 08:18 69 98 05/22/20 08:14 78 121/63 05/22/20 08:13 77 98 05/22/20 08:08 81 99 0522/20 08:03 74 98 0522/20 07:59 76 108/56 L 05/20 07:58 74 98 0522/20 07:53 72 98 0522/20 07:48 74 98 0522/20 07:47 75 108/55 L 0520 07:46 76 89 L 0520 07:43 79 97 0522/20 07:38 78 97 0522/20 07:33 79 98 0522/20 07:29 76 18 116/63 05/20 07:28 75 97 05/20 07:23 88 99 05/20 07:20 76 91 05/20 07:17 79 97 05/20 07:15 72 128/76 0522/20 07:12 77 96 05 07:07 79 99 05 07:02 77 99 05/20 06:59 75 124/73 0522/20 06:57 74 99 05/22/20 06:52 81 99 0522/20 06:47 76 100 0522/20 06:44 74 134/78 0522/20 06:42 78 98 05/22/20 06:37 78 99 0522/20 06:32 82 97 05/22/20 06:30 69 132/79 0522/20 06:27 79 99 0522/20 06:25 18 0522/20 06:22 69 98 05/22/20 06:17 75 99 05/22/20 06:14 75 142/79 H 0522/20 06:12 71 98 05/22/20 06:07 74 98 0522/20 06:02 74 98 05/22/20 05:59 76 126/78 0522/20 05:57 74 99 05/22/20 05:55 16 0522/20 05:52 75 98 05/22/20 05:47 74 98 05/22/20 05:44 81 123/68 05/22/20 05:42 75 99 05/22/20 05:37 81 99 05/22/20 05:32 72 99 05//20 05:30 75 124/62 05//20 05:27 73 98 05//20 05:25 20 0520 05:22 95 H 99 05/20 05:17 76 99 05//20 05:15 36.8 C 05 05:14 74 131/82 0522/20 05:12 77 99 0520 05:07 81 99 05 05:02 77 98 05 05:01 75 123/61 05/20 04:57 82 99 05/20 04:55 18 05/ 04:52 77 99 05/ 04:47 82 99 05/20 04:45 70 133/75 05/20 04:42 85 99 05/20 04:37 83 98 05/ 04:32 77 98 05/ 04:29 90 136/87 0520 04:27 80 96 0520 04:26 79 93 0520 04:25 16 0520 04:22 79 96 05/20 04:17 75 96 05/20 04:15 76 130/79 05/20 04:12 78 96 05/ 04:07 79 95 05/20 04:02 76 95 05/20 03:59 81 122/70 0522/20 03:57 77 96 05/20 03:55 16 05/20 03:52 80 96 05/20 03:47 80 96 05/20 03:44 69 125/72 05/20 03:42 74 97 05/22/20 03:37 75 96 05/22/20 03:32 78 95 05/22/20 03:29 76 132/70 0522/20 03:27 79 95 05/20 03:25 16 05/20 03:22 80 97 05/22/20 03:20 36.9 C 0520 03:19 78 94 05/22/20 03:17 79 95 05/22/20 03:14 74 126/73 05/20 03:12 79 95 05/22/20 03:10 81 93 05/22/20 03:07 79 95 05/22/20 03:03 78 94 05/22/20 03:02 80 95 05/22/20 02:59 77 120/67 05/22/20 02:57 78 95 05/22/20 02:56 74 94 05/22/20 02:55 18 05/22/20 02:52 80 96 05/22/20 02:47 78 96 05/22/20 02:44 75 124/69 94 05/22/20 02:42 78 96 05/22/20 02:37 73 96 05/22/20 02:32 76 97 05/22/20 02:29 63 132/75 05/22/20 02:27 72 97 05/22/20 02:25 18 05/22/20 02:22 79 97 05/22/20 02:17 72 97 05/22/20 02:14 68 136/67 05/22/20 02:12 71 98 05/22/20 02:07 70 98 05/22/20 02:02 76 98 05/22/20 01:59 71 140/76 05/22/20 01:57 71 98 05/22/20 01:55 18 05/22/20 01:52 75 97 05/22/20 01:47 103 H 99 05/22/20 01:44 73 138/79 05/22/20 01:42 75 99 05/22/20 01:37 74 98 05/22/20 01:32 70 97 05/22/20 01:29 66 136/75 05/22/20 01:27 71 98 05/22/20 01:25 16 05/22/20 01:22 74 97 05/22/20 01:17 36.8 C 77 98 05/22/20 01:14 68 130/70 05/22/20 01:12 74 97 05/22/20 01:07 74 97 05/22/20 01:02 75 98 05/22/20 00:59 72 128/79 05/22/20 00:57 76 98
[2020-03-31] MEDS ORDERED: LACTATED RINGER'S 1,000 ML IV SCH ×2 (13:00→15:30)
[2020-03-31] MEDS ORDERED: fentaNYL citrate 100 MCG/2 ML VIAL ONE ×2 (13:32→14:59)
[2020-03-31] MEDS ORDERED: LIDOCAINE/EPINEPHRINE 2% 1:200,000 20 ML SDV ONE ×2 (14:04→14:57)
[2020-03-31] MEDS ORDERED: OXYTOCIN 10 UNITS/ML VIAL ONE ×2 (14:08→14:34)
[2020-03-31] MEDS ORDERED: MoRPHine SULFATE PF 1 MG/ML 10 ML AMP/VIAL ONE (14:37)
[2020-03-31] MEDS ORDERED: MIDAZOLAM HCL 1 MG/ML 2ML VIAL ONE (14:58)
[2020-03-31] MEDS ORDERED: DIPHTHERIA/TETANUS/PERTUSSIS 0.5 ML SYR/VIAL IM ONE (15:24)
[2020-03-31] MEDS ORDERED: SUPERCREAM 0.870% 15 GM JAR EXT PRN (15:24)
[2020-03-31] MEDS ORDERED: ONDANSETRON INJ 2 MG/ML 2 ML VIAL IV PRN ×2 (15:24→15:29)
[2020-03-31] MEDS ORDERED: BENZOCAINE 20% AER SPR 82.5 GM CAN EXT PRN (15:24)
[2020-03-31] MEDS ORDERED: HYDROCORTISONE ACETATE 25 MG SUPP PR PRN (15:24)
[2020-03-31] MEDS ORDERED: SENNA 8.6 MG TAB PO PRN (15:24)
[2020-03-31] MEDS ORDERED: PROMETHAZINE HCL 25 MG in SODIUM CHLORIDE 0.9% 50 ML IV PRN ×2 (15:24→15:29)
[2020-03-31] MEDS ORDERED: MAGNESIUM HYDROXIDE SUSP 30 ML UDC PO PRN (15:24)
[2020-03-31] MEDS ORDERED: MEASLES, MUMPS & RUBELLA VIRUS VIAL SQ ONE (15:24)
--- NOTE | 2020-03-31 15:24 | Post Operative Brief Note ---
Immediate Post Op Note v1 Date of Surgery March 31, 2020 Pre & Post Diagnosis Operation Date: 03/31/20 13:20 Pre-Op Diagnosis: Term . Prolonged rupture of membranes, arrest of dilation Post-Op Diagnosis: Term . Prolonged rupture of membranes, arrest of dilation- Living female child at 1422 I identified the patient and participated in the time-out.: Yes Procedure Operation Date: 03/31/20 13:20 Actual Procedures p Cesearan Section for living female child at 1422(Bilateral) - Shira Beaver MD Surgeon Shira De Souza MD Rn Gastroenterology Arnaud KENYON Estimated Blood Loss 700 Findings Consistent with Post-Op Diagnosis Drains Chacon Catheter Anesthesia Type Labor Epidural Complications none Disposition Accompanied Patient To Recovery: Yes Disposition: L&D
[2020-03-31] MEDS ORDERED: NALOXONE HCL 0.4 MG/1 ML VIAL/CARP IV PRN (15:29)
[2020-03-31] MEDS ORDERED: NALBUPHINE HCL INJ 10 MG/ML AMP IV PRN (15:29)
[2020-03-31] MEDS ORDERED: KETOROLAC 30 MG/ML VIAL IV PRN (15:29)
[2020-03-31] MEDS ORDERED: LACTATED RINGER'S 500 ML IV PRN (15:29)
[2020-03-31] MEDS ORDERED: NALOXONE HCL 0.08 MG in SYRINGE 1.8 ML IV PRN (15:29)
[2020-03-31] MEDS ORDERED: MoRPHine SULFATE PF 1 MG/ML 10 ML AMP/VIAL INT SPINAL ONE (15:29)
[2020-03-31] MEDS ORDERED: DiphenhydrAMINE HCL 50 MG/ML VIAL IV PRN (15:29)
[2020-03-31] MEDS ORDERED: NALOXONE HCL 1 MG in SODIUM CHLORIDE 0.9% 1000ML 1,000 ML IV PRN (15:29)
[2020-03-31] MEDS ORDERED: ePHEDrine sulfate 50 MG/ML AMP IV PRN (15:29)
[2020-03-31] MEDS ORDERED: NO NARCOTICS OR SEDATIVES SCH (15:30)
[2020-03-31] MEDS ORDERED: DC INTRASPINAL MORPHINE SCH (15:30)
[2020-03-31] MEDS ORDERED: SODIUM CHLORIDE 0.9% 1000ML 1,000 ML IV SCH (15:30)
--- NOTE | 2020-03-31 15:35 | Anesthesia Procedure Note ---
Date of Service March 31, 2020 Anesthesia Post Epidural Note Vital Signs Vital Signs: Temp Pulse Resp BP Pulse Ox 36.8 C 89 20 129/64 100 03/31/20 05:15 03/31/20 15:31 03/31/20 10:30 03/31/20 15:31 03/31/20 15:28 Pain Intensity Abdomen: Pain Intensity: 0 Notes Mental Status: alert / awake / arousable Nausea / Vomiting: adequately controlled Pain: adequately controlled Airway Patency, RR, SpO2: stable & adequate BP & HR: stable & adequate Hydration State: stable & adequate Neuraxial Anesthesia: was administered and sensory block is resolving Anesthetic Complications: no major complications apparent Epidural: Removed without complications and With tip intact
[2020-03-31] MEDS ORDERED: OXYTOCIN 30 UNITS in LACTATED RINGER'S 1,000 ML IV SCH (16:15)
--- NOTE | 2020-03-31 16:32 | Anesthesiology Progress Note ---
Date of Service March 31, 2020 Anesthesia Post Procedure Vital Signs Vital Signs: Temp Pulse Pulse Resp BP BP Pulse Ox 03/31/20 16:29 93 H 105/56 L 03/31/20 16:28 89 99 03/31/20 16:23 89 98 03/31/20 16:19 90 105/63 03/31/20 16:18 85 100 03/31/20 16:13 92 H 98 03/31/20 16:10 86 18 106/60 98 03/31/20 16:09 86 106/60 03/31/20 16:08 94 H 99 03/31/20 16:03 98 H 100 03/31/20 16:02 96 H 113/57 L 03/31/20 16:00 96 H 18 113/57 L 100 03/31/20 15:58 91 H 100 03/31/20 15:53 93 H 79 L 03/31/20 15:50 95 H 18 100 03/31/20 15:48 95 H 100 03/31/20 15:43 83 100 03/31/20 15:40 91 H 18 113/59 L 100 03/31/20 15:39 91 H 113/59 L 03/31/20 15:38 87 100 03/31/20 15:33 86 100 03/31/20 15:31 89 129/64 03/31/20 15:30 37.1 C 99 H 16 129/64 99 03/31/20 15:28 98 H 100 03/31/20 13:44 83 129/75 03/31/20 13:43 86 99 03/31/20 13:41 85 124/74 03/31/20 13:38 84 99 03/31/20 13:36 84 127/70 03/31/20 13:33 78 99 03/31/20 13:28 86 99 03/31/20 13:27 83 92 03/31/20 13:23 83 99 03/31/20 13:18 85 98 03/31/20 13:14 85 135/77 03/31/20 13:13 86 98 03/31/20 13:08 83 98 03/31/20 13:03 85 98 03/31/20 12:59 93 H 131/67 03/31/20 12:58 85 98 03/31/20 12:53 84 98 03/31/20 12:48 78 99 05/ 12:45 75 132/64 05//20 12:43 79 97 05/20 12:42 78 93 0520 12:38 78 98 05/20 12:33 78 99 05/20 12:29 70 112/55 L 05 12:28 76 97 0520 12:25 77 93 05 12:23 75 98 0520 12:18 78 98 0520 12:14 77 118/62 05/20 12:13 78 99 05 12:08 84 99 05 12:03 76 98 05 11:59 74 111/57 L 05 11:58 78 98 05 11:56 70 93 05 11:53 78 98 05// 11:48 82 99 05 11:44 79 115/62 92 05 11:43 77 98 05 11:38 70 98 05 11:37 79 92 05 11:33 76 97 05// 11:29 71 111/61 05 11:28 81 97 05 11:23 78 96 05 11:18 74 99 05//20 11:15 68 108/62 05/20 11:13 73 100 05 11:08 75 98 05 11:03 74 99 05 10:59 72 115/56 L 05 10:58 71 99 05//20 10:53 73 99 05//20 10:48 73 99 05//20 10:44 71 111/56 L 05 10:43 72 98 05//20 10:38 75 98 05//20 10:33 79 98 05//20 10:30 77 20 119/57 L 0520 10:28 72 98 05//20 10:24 86 90 05//20 10:23 85 95 05// 10:18 79 99 05//20 10:14 74 106/55 L 05/22/20 10:13 73 98 05/22/20 10:08 76 98 05/22/20 10:03 74 99 05/22/20 09:59 79 102/57 L 05/22/20 09:58 76 98 05/22/20 09:53 74 98 05/22/20 09:48 74 98 05/22/20 09:44 75 102/59 L 05/22/20 09:43 78 97 05/22/20 09:38 73 98 05/22/20 09:33 72 98 05/22/20 09:29 75 18 102/57 L 05/22/20 09:28 70 99 05/22/20 09:23 89 90 05/22/20 09:18 75 98 05/22/20 09:15 77 108/59 L 05/22/20 09:14 81 91 05/22/20 09:13 81 98 05/22/20 09:08 73 97 05/22/20 09:03 68 97 05/22/20 09:00 70 115/62 05/22/20 08:58 76 98 05/22/20 08:53 68 98 05/22/20 08:48 76 98 05/22/20 08:44 72 113/61 05/22/20 08:43 74 98 05/22/20 08:38 73 98 05/22/20 08:33 71 99 05/22/20 08:29 71 18 114/58 L 05/22/20 08:28 74 96 05/22/20 08:23 71 98 05/22/20 08:18 69 98 05/22/20 08:14 78 121/63 05/22/20 08:13 77 98 05/22/20 08:08 81 99 05/22/20 08:03 74 98 05/22/20 07:59 76 108/56 L 05/22/20 07:58 74 98 05/22/20 07:53 72 98 05/22/20 07:48 74 98 05/22/20 07:47 75 108/55 L 05/22/20 07:46 76 89 L 05/22/20 07:43 79 97 05/22/20 07:38 78 97 05/22/20 07:33 79 98 05/22/20 07:29 76 18 116/63 05/22/20 07:28 75 97 05/22/20 07:23 88 99 0522/20 07:20 76 91 0522/20 07:17 79 97 0522/20 07:15 72 128/76 05/20 07:12 77 96 05/20 07:07 79 99 05/20 07:02 77 99 05/20 06:59 75 124/73 0522/20 06:57 74 99 0522/20 06:52 81 99 05/20 06:47 76 100 05/20 06:44 74 134/78 0522/20 06:42 78 98 05/20 06:37 78 99 05/20 06:32 82 97 05/20 06:30 69 132/79 05/20 06:27 79 99 0520 06:25 18 05/20 06:22 69 98 05/20 06:17 75 99 05/20 06:14 75 142/79 H 05 06:12 71 98 05 06:07 74 98 0520 06:02 74 98 05/20 05:59 76 126/78 05/20 05:57 74 99 05/20 05:55 16 05/20 05:52 75 98 05/20 05:47 74 98 05/20 05:44 81 123/68 05/20 05:42 75 99 05/20 05:37 81 99 05/20 05:32 72 99 05/20 05:30 75 124/62 05/20 05:27 73 98 05/20 05:25 20 0522/20 05:22 95 H 99 05/20 05:17 76 99 05/20 05:15 36.8 C 0520 05:14 74 131/82 05/20 05:12 77 99 05/20 05:07 81 99 05/20 05:02 77 98 05/20 05:01 75 123/61 0522/20 04:57 82 99 05/22/20 04:55 18 0522/20 04:52 77 99 05/20 04:47 82 99 05/22/20 04:45 70 133/75 05/22/20 04:42 85 99 05/22/20 04:37 83 98 05/22/20 04:32 77 98 05/22/20 04:29 90 136/87 05/22/20 04:27 80 96 05/22/20 04:26 79 93 05/22/20 04:25 16 05/22/20 04:22 79 96 05/22/20 04:17 75 96 05/22/20 04:15 76 130/79 05/22/20 04:12 78 96 05/22/20 04:07 79 95 05/22/20 04:02 76 95 05/22/20 03:59 81 122/70 05/22/20 03:57 77 96 05/22/20 03:55 16 05/22/20 03:52 80 96 05/22/20 03:47 80 96 05/22/20 03:44 69 125/72 05/22/20 03:42 74 97 05/22/20 03:37 75 96 05/22/20 03:32 78 95 05/22/20 03:29 76 132/70 05/22/20 03:27 79 95 05/22/20 03:25 16 05/22/20 03:22 80 97 05/22/20 03:20 36.9 C 05/22/20 03:19 78 94 05/22/20 03:17 79 95 05/22/20 03:14 74 126/73 05/22/20 03:12 79 95 05/22/20 03:10 81 93 05/22/20 03:07 79 95 05/22/20 03:03 78 94 05/22/20 03:02 80 95 05/22/20 02:59 77 120/67 05/22/20 02:57 78 95 05/22/20 02:56 74 94 05/22/20 02:55 18 05/22/20 02:52 80 96 05/22/20 02:47 78 96 05/22/20 02:44 75 124/69 94 05/22/20 02:42 78 96 05/22/20 02:37 73 96 05/22/20 02:32 76 97 05/22/20 02:29 63 132/75 05/22/20 02:27 72 97 05/22/20 02:25 18 05/22/20 02:22 79 97 05/22/20 02:17 72 97 05/22/20 02:14 68 136/67 05/22/20 02:12 71 98 05/20 02:07 70 98 05/20 02:02 76 98 05//20 01:59 71 140/76 05/22/20 01:57 71 98 05/22/20 01:55 18 05/22/20 01:52 75 97 05/22/20 01:47 103 H 99 05/20 01:44 73 138/79 05/22/20 01:42 75 99 05/22/20 01:37 74 98 05/22/20 01:32 70 97 05/22/20 01:29 66 136/75 05/20 01:27 71 98 05/20 01:25 16 05/22/20 01:22 74 97 05/22/20 01:17 36.8 C 77 98 05 01:14 68 130/70 05/20 01:12 74 97 05/20 01:07 74 97 05/20 01:02 75 98 05/22/20 00:59 72 128/79 05/22/20 00:57 76 98 05/22/20 00:55 16 05//20 00:52 69 98 05/22/20 00:47 80 98 05/22/20 00:43 77 16 126/74 05/22/20 00:42 88 99 05/22/20 00:37 75 98 05/22/20 00:34 75 90 0522/20 00:32 69 97 05/22/20 00:27 70 97 05/22/20 00:25 16 05/22/20 00:22 74 98 05/22/20 00:19 70 109/57 L 0522/20 00:18 16 05/22/20 00:17 71 97 05/22/20 00:12 68 98 05/22/20 00:07 71 98 05/22/20 00:03 82 16 110/63 05/22/20 00:02 79 97 05/21/20 23:57 67 98 05/21/20 23:55 16 05/21/20 23:52 69 99 05/21/20 23:48 81 111/69 03/30/20 23:47 69 18 99 03/30/20 23:42 73 99 03/30/20 23:37 73 98 03/30/20 23:32 82 16 118/61 98 03/30/20 23:27 80 18 120/64 99 03/30/20 23:22 85 98 03/30/20 23:21 82 16 115/67 03/30/20 23:19 85 16 119/61 03/30/20 23:17 82 18 121/61 98 03/30/20 23:16 36.7 C 03/30/20 23:15 86 18 125/60 03/30/20 23:12 87 18 130/84 99 03/30/20 23:07 93 H 99 03/30/20 23:02 98 H 98 03/30/20 22:57 82 98 03/30/20 22:08 79 18 142/68 H 03/30/20 21:10 36.8 C 18 03/30/20 21:09 82 123/75 03/30/20 20:10 85 18 127/68 03/30/20 19:15 36.7 C 78 20 129/77 03/30/20 18:10 85 120/69 03/30/20 17:09 36.8 C 85 20 128/70 Pain Intensity Abdomen: Pain Intensity: 0 Transfer of Care Handoff Completed per policy Notes Mental Status: alert / awake / arousable Nausea / Vomiting: adequately controlled Pain: adequately controlled Airway Patency, RR, SpO2: stable & adequate BP & HR: stable & adequate Hydration State: stable & adequate Neuraxial Anesthesia: was administered and sensory block is resolving Anesthetic Complications: no major complications apparent
--- NOTE | 2020-03-31 17:37 | Operative Report (OR) ---
DATE OF OPERATION: 03/31/2020 PREOPERATIVE DIAGNOSES: The patient is a 30-year-old 1, para 0, at 38 weeks and 4 days of gestation with pregestational type 2 diabetes, presented with premature spontaneous rupture of membrane, arrest of dilatation in active phase of labor despite adequate uterine contractions, prolonged rupture of membranes. POSTOPERATIVE DIAGNOSES: The patient is a 30-year-old 1, para 0, at 38 weeks and 4 days of gestation with pregestational type 2 diabetes, presented with premature spontaneous rupture of membrane, arrest of dilatation in active phase of labor despite adequate uterine contractions, prolonged rupture of membranes. PROCEDURE: Primary low transverse with Pfannenstiel skin incision. SURGEON: Shira De Souza MD. PESTICIDE APPLICATOR: Labor and delivery nurses Danielle and Ricarda White. ESTIMATED BLOOD LOSS: 700 mL. DRAINS: Chacon catheter drained 550 mL of clear urine. INTRAVENOUS FLUIDS: 1500 mL of lactated Ringer. ANESTHESIA: Epidural. ANESTHESIOLOGIST: Dr. Walden. COMPLICATIONS: None. FINDINGS: Baby was a viable female , delivered at 1422 p.m. Apgars 8/9, weight is 2985 grams. Baby was in cephalic presentation. There was a nuchal cord around the neck x1. Maternal findings; normal uterus, fallopian tubes / ovaries and morbid obesity. DESCRIPTION OF PROCEDURE: The patient was taken to the operating room where epidural anesthesia was checked to be adequate. She was placed in dorsal lithotomy position with a leftward tilt. She was prepared and draped in usual sterile fashion. A Pfannenstiel skin incision was made and carried through to the underlying layer of fascia with the Bovie. Fascia was incised in the midline and incision was extended laterally with the help of Ortiz scissors, and the lower aspect of the fascial incision was grasped with 2 Usha clamps, elevated, underlying rectus muscles were dissected off sharply with Ortiz scissors. Upper aspect of the fascial incision was then grasped with 2 Usha clamps, elevated, underlying rectus muscles were dissected off sharply with Ortiz scissors. Rectus muscles were already . Peritoneum was entered bluntly with fingers and peritoneal incision was extended superiorly and inferiorly with good visualization of the bladder. Bladder blade was inserted and vesicouterine peritoneum was identified, grasped with pickup and entered sharply with Metzenbaum scissors. A bladder flap was created digitally and bladder blade was reinserted. Lower uterine segment was incised in transverse fashion, incision was extended laterally with the help of bandage scissors. Membranes were ruptured. Clear fluid was obtained. Baby's head was delivered without difficulty. Shoulders were delivered with minimal traction. Baby's mouth and nose were suctioned. Cord was clamped x2 and cut, and the baby was handed to the waiting pediatric team. Placenta was delivered manually as intact and complete. Uterus was exteriorized, cleared of all clots and debris. Incision was repaired with 0 Vicryl in a running locked fashion and a second imbricating layer was placed with 0 Vicryl in a running locked fashion. Excellent hemostasis was achieved. There was a small ooze on the lower segment of the uterus, which was controlled with [id number] stitch x2 and then the cul-de-sac was irrigated. Uterus was returned to the abdomen. The pelvis was irrigated with warm normal saline and suctioned. Incision was checked to be again hemostatic. Parietal peritoneum was reapproximated with 3-0 Vicryl in a running fashion. Rectus muscles were reapproximated with the same suture in a running fashion, and then over the muscle and under the fascia were checked for hemostasis. No bleeding was noted, and then the rectus fascia was reapproximated with #1 Vicryl in a running fashion. Subcuticular fat tissue was brought together with 3-0 Vicryl in a running fashion. Skin was closed with 4-0 Monocryl in a subcuticular fashion and the incision was covered with RAMON dressing. The patient tolerated the procedure well. Sponge, lap, needle count was correct x3, and she received 3 grams of cefazolin and 900 mg of clindamycin before surgery. No complications happened. She was taken to recovery room in stable condition, and I was present and my assistants were present during whole procedure. I attest to the content of the Intraoperative Record and any orders documented therein. Any exceptions are noted below. BELLA
[2020-03-31] MEDS: SIMETHICONE 80 MG CHEW PO SCH ×2 (18:17→21:07)
[2020-03-31] MEDS: DOCUSATE SODIUM 100 MG CAP PO SCH (21:07)
[2020-03-31] MEDS: CEFAZOLIN 3000MG/72.5 ML BAG IV SCH (22:04)
[2020-03-31] MEDS: NYSTATIN POWDER 15GM BTL EXT SCH (22:09)
[2020-03-31] MEDS: CLINDAMYCIN 900 MG in DEXTROSE 5% 50 ML IV SCH (22:43)
[2020-04-01] MEDS ORDERED: OXYTOCIN 20 UNITS in LACTATED RINGER'S 1,000 ML IV SCH (00:17)
[2020-04-01] MEDS: CEFAZOLIN 1000MG 1,000 MG/7.5 ML SYR IV PRN (05:04)
[2020-04-01] MEDS: CLINDAMYCIN 900 MG in DEXTROSE 5% 50 ML IV SCH ×2 (06:19→15:35)
[2020-04-01 06:22] LABS: Basophils # (auto) 0.02 K/uL (0-0.2); Basophils % (auto) 0.2 %; Eosinophils # (auto) 0.06 K/uL (0-0.5); Eosinophils % (auto) 0.7 %; Hematocrit (blood only) 30.2 % (37-47); Hemoglobin 9.9 g/dL (12.0-16.0); Immature Granulocytes # (auto) 0.03 K/uL (0.00-0.02); Immature Granulocytes % (auto) 0.3 %; Lymphocytes # (auto) 1.49 K/uL (1.2-3.4); Lymphocytes % (auto) 16.4 %; Mean Corpuscular Hemoglobin 26.5 pg (25-34); Mean Corpuscular Hgb Conc 32.8 g/dL (32-36); Monocytes # (auto) 0.56 K/uL (0.11-0.59); Monocytes % (auto) 6.2 %; Neutrophils % (auto) 76.2 %; Platelet Count 228 K/uL (130-400); RDW Coefficient of Variation 15.7 % (11.5-14.5); RDW Standard Deviation 46.1 fL (36.4-46.3); Red Blood Count 3.73 M/uL (4.2-5.4); White Blood Count 9.06 K/uL (4.8-10.8)
--- NOTE | 2020-04-01 08:13 | Obstetrical Progress Note ---
Date of Service April 01, 2020 Assessment & Plan Admission and Anticipated Discharge Date Admission Date: March 30, 2020 Physical Exam Physical Exam: abdomen soft and non tender passing flatus incision is clean aguila dressing in place no calf tenderness vaginal bleeding scant hgb 9.9 Results & Data ([facility]) Vital Signs (Past 12 Hours) Vital Signs Temp Pulse Resp BP Pulse Ox 04/01/20 06:20 14 98 04/01/20 05:05 16 97 04/01/20 04:05 14 97 04/01/20 03:15 36.5 C 72 16 113/79 100 04/01/20 02:50 16 98 04/01/20 01:30 16 98 04/01/20 00:10 36.8 C 73 16 102/71 99 03/31/20 23:05 18 97 03/31/20 22:00 18 99 03/31/20 21:00 18 97 03/31/20 20:30 20 98
[2020-04-01] MEDS: FERROUS SULFATE 325 MG TAB PO SCH (08:33)
[2020-04-01] MEDS: PRENATAL VITAMIN 1 TAB PO SCH (08:33)
[2020-04-01] MEDS: DOCUSATE SODIUM 100 MG CAP PO SCH ×2 (08:33→21:21)
[2020-04-01] MEDS: SIMETHICONE 80 MG CHEW PO SCH ×4 (08:33→21:21)
[2020-04-01] MEDS: METFORMIN HCL 500 MG TAB PO SCH ×2 (09:14→17:13)
--- NOTE | 2020-04-01 10:40 | Anesthesiology Progress Note ---
Date of Service April 01, 2020 Anesthesia Post Procedure Vital Signs Vital Signs: Temp Pulse Pulse Resp BP BP Pulse Ox 04/01/20 10:06 16 99 04/01/20 09:00 16 97 04/01/20 08:00 16 98 04/01/20 07:35 16 99 04/01/20 07:20 36.8 C 81 18 120/80 99 04/01/20 06:20 14 98 04/01/20 05:05 16 97 04/01/20 04:05 14 97 04/01/20 03:15 36.5 C 72 16 113/79 100 04/01/20 02:50 16 98 04/01/20 01:30 16 98 04/01/20 00:10 36.8 C 73 16 102/71 99 03/31/20 23:05 18 97 03/31/20 22:00 18 99 03/31/20 21:00 18 97 03/31/20 20:30 20 98 03/31/20 19:30 20 99 03/31/20 18:31 82 18 117/62 99 03/31/20 18:30 36.9 C 77 20 113/77 97 03/31/20 17:30 82 18 117/62 99 03/31/20 17:29 82 117/62 03/31/20 17:28 79 99 03/31/20 17:23 78 98 03/31/20 17:19 82 116/62 03/31/20 17:18 79 98 03/31/20 17:13 84 99 03/31/20 17:09 78 107/56 L 03/31/20 17:08 79 98 03/31/20 17:03 79 99 03/31/20 17:00 80 18 136/60 98 03/31/20 16:58 88 98 03/31/20 16:53 88 98 03/31/20 16:49 84 108/57 L 03/31/20 16:48 86 98 03/31/20 16:43 86 98 03/31/20 16:39 83 107/56 L 03/31/20 16:38 83 100 03/31/20 16:33 85 99 03/31/20 16:30 36.7 C 93 H 18 105/56 L 99 03/31/20 16:29 93 H 105/56 L 03/31/20 16:28 89 99 05 16:23 89 98 05 16:20 90 18 105/63 98 05 16:19 90 105/63 05 16:18 85 100 05 16:13 92 H 98 03/31/20 16:10 86 18 106/60 98 03/31/20 16:09 86 106/60 05 16:08 94 H 99 03/31/20 16:03 98 H 100 03/31/20 16:02 96 H 113/57 L 03/31/20 16:00 96 H 18 113/57 L 100 03/31/20 15:58 91 H 100 05 15:53 93 H 79 L 03/31/20 15:50 95 H 18 100 03/31/20 15:48 95 H 100 03/31/20 15:43 83 100 03/31/20 15:40 91 H 18 113/59 L 100 03/31/20 15:39 91 H 113/59 L 03/31/20 15:38 87 100 03/31/20 15:33 86 100 03/31/20 15:31 89 129/64 05 15:30 37.1 C 99 H 16 129/64 99 03/31/20 15:28 98 H 100 03/31/20 13:44 83 129/75 05 13:43 86 99 03/31/20 13:41 85 124/74 05 13:38 84 99 05 13:36 84 127/70 05 13:33 78 99 03/31/20 13:28 86 99 05 13:27 83 92 05 13:23 83 99 05 13:18 85 98 05 13:14 85 135/77 05 13:13 86 98 05 13:08 83 98 05 13:03 85 98 05 12:59 93 H 131/67 05 12:58 85 98 05 12:53 84 98 05 12:48 78 99 05 12:45 75 132/64 05 12:43 79 97 05 12:42 78 93 03/31/20 12:38 78 98 03/31/20 12:33 78 99 03/31/20 12:29 70 112/55 L 03/31/20 12:28 76 97 03/31/20 12:25 77 93 03/31/20 12:23 75 98 03/31/20 12:18 78 98 03/31/20 12:14 77 118/62 03/31/20 12:13 78 99 03/31/20 12:08 84 99 03/31/20 12:03 76 98 03/31/20 11:59 74 111/57 L 03/31/20 11:58 78 98 03/31/20 11:56 70 93 03/31/20 11:53 78 98 03/31/20 11:48 82 99 03/31/20 11:44 79 115/62 92 03/31/20 11:43 77 98 03/31/20 11:38 70 98 03/31/20 11:37 79 92 03/31/20 11:33 76 97 03/31/20 11:29 71 111/61 03/31/20 11:28 81 97 03/31/20 11:23 78 96 03/31/20 11:18 74 99 03/31/20 11:15 68 108/62 03/31/20 11:13 73 100 03/31/20 11:08 75 98 03/31/20 11:03 74 99 03/31/20 10:59 72 115/56 L 03/31/20 10:58 71 99 03/31/20 10:53 73 99 03/31/20 10:48 73 99 03/31/20 10:44 71 111/56 L 03/31/20 10:43 72 98 Pain Intensity Abdomen: Pain Intensity: 0 Transfer of Care Handoff Completed per policy Notes Mental Status: alert / awake / arousable and participated in evaluation Patient Amnestic to Procedure: Yes Nausea / Vomiting: adequately controlled Pain: adequately controlled Airway Patency, RR, SpO2: stable & adequate BP & HR: stable & adequate Hydration State: stable & adequate Anesthetic Complications: no major complications apparent and Pt Satisfied with anesthetic care
[2020-04-01] MEDS: CEFAZOLIN 3000MG/72.5 ML BAG IV SCH (13:33)
[2020-04-01] MEDS: NYSTATIN POWDER 15GM BTL EXT SCH ×2 (15:21→21:21)
[2020-04-01] MEDS ORDERED: DiphenhydrAMINE HCL 50 MG/ML VIAL IV PRN (15:30)
[2020-04-01] MEDS ORDERED: KETOROLAC 30 MG/ML VIAL IV PRN (15:30)
[2020-04-01] MEDS ORDERED: OXYCODONE/ACETAMINOPHEN 5mg/325mg TAB PO PRN (15:30)
[2020-04-01] MEDS ORDERED: MEPERIDINE HCL 50 MG/ML CARP IV PRN (15:30)
[2020-04-01] MEDS: cephALEXin 500 MG CAP PO SCH ×2 (17:14→21:21)
[2020-04-01] MEDS ORDERED: bisacodyL 5 MG TABEC PO SCH (20:00)
[2020-04-02 06:53] LABS: Hematocrit (blood only) 30.9 % (37-47); Hemoglobin 10.2 g/dL (12.0-16.0)
[2020-04-02] MEDS: SIMETHICONE 80 MG CHEW PO SCH ×4 (08:51→20:20)
[2020-04-02] MEDS: DOCUSATE SODIUM 100 MG CAP PO SCH ×2 (08:51→20:20)
[2020-04-02] MEDS: PRENATAL VITAMIN 1 TAB PO SCH (08:51)
[2020-04-02] MEDS: FERROUS SULFATE 325 MG TAB PO SCH (08:52)
[2020-04-02] MEDS: METFORMIN HCL 500 MG TAB PO SCH ×2 (09:18→16:58)
[2020-04-02] MEDS: cephALEXin 500 MG CAP PO SCH ×3 (09:18→20:20)
--- NOTE | 2020-04-02 11:54 | Obstetrical Progress Note ---
Date of Service April 02, 2020 Assessment & Plan Admission and Anticipated Discharge Date Admission Date: March 30, 2020 Physical Exam Physical Exam: abdomen soft and non tender aguila dressing in place no redness no calf tenderness ambulating well vaginal bleeding scant hgb 10.2 Results & Data ([facility]) Vital Signs (Past 12 Hours) Vital Signs Temp Pulse Resp BP 04/02/20 07:29 36.8 C 86 20 108/74 04/02/20 00:00 36.7 C 86 18 117/85
[2020-04-02] MEDS: NYSTATIN POWDER 15GM BTL EXT SCH ×2 (14:49→20:20)
[2020-04-02] MEDS ORDERED: bisacodyL 10 MG SUPP PR PRN (15:24)
[2020-04-02] MEDS: IBUPROFEN 600 MG TAB PO PRN (16:57)
[2020-04-03] MEDS: SIMETHICONE 80 MG CHEW PO SCH (08:15)
[2020-04-03] MEDS: METFORMIN HCL 500 MG TAB PO SCH (08:15)
[2020-04-03] MEDS: DOCUSATE SODIUM 100 MG CAP PO SCH (08:15)
[2020-04-03] MEDS: PRENATAL VITAMIN 1 TAB PO SCH (08:15)
[2020-04-03] MEDS: IBUPROFEN 600 MG TAB PO PRN (08:15)
[2020-04-03] MEDS: FERROUS SULFATE 325 MG TAB PO SCH (08:15)
[2020-04-03] MEDS: cephALEXin 500 MG CAP PO SCH (08:15)
[2020-04-03] MEDS: NYSTATIN POWDER 15GM BTL EXT SCH (08:19)
--- NOTE | 2020-04-03 10:25 | Obstetrical Progress Note ---
Date of Service April 03, 2020 Assessment & Plan (1) delivery delivered: C/sec day #3 Morbid obesity pt doing well No complaints Stressed significance of ambulation with pt in order to prevent DVT. Pt is encouraged to take Aspirin 81 mg /day till adequate ambulations Subjective Ambulation: ambulating normally Voiding: no voiding problems Passing Gas:: Yes Diet Tolerance:: clear liquids Lochia:: Small Feeding Type:: breast feeding Review of Systems All systems reviewed & are unremarkable except as noted in HPI & below Physical Exam Constitutional WD/WN, vitals as above well developed and well nourished Eyes PERRL, conjunctivae normal, anicteric sclerae ENMT external ear and nose normal, oropharynx normal Neck trachea midline, no thyromegaly Respiratory normal respiratory effort, lungs clear to auscultation Cardiovascular RRR, no murmur, no edema Chest (Breasts) normal inspection/palpation of breasts Gastrointestinal (Abdomen) normal bowel sounds, soft, nontender, no hepatosplenomegaly Musculoskeletal no cyanosis or clubbing, extremities motor strength 5/5 Skin no rashes, warm and dry + incision (Clean,dry and intact) Neurologic patellar DTR's 2+ bilat, sensation intact Psychiatric A+Ox3, euthymic affect Genitourinary normal external appearance Lymphatic no cervical or axillary lymphadenopathy Results & Data Vital Signs (Past 12 Hours) Vital Signs Temp Pulse Resp BP Pulse Ox 04/03/20 07:20 36.6 C 79 16 117/83 99 04/02/20 23:15 36.8 C 78 18 126/81 97
--- NOTE | 2020-04-07 01:56 | Discharge Summary (DS) ---
DETAILS OF ADMISSION: The patient is a 30-year-old G1, P0 at 38 weeks and 4 days of gestation with type 2 diabetes, morbid obesity. She was admitted on 03/30/[address] Vincent with premature rupture of membranes. She received Chacon bulb and Pitocin. She went into active labor, but has not changed her cervix over many hours and after discussion of the risks and benefits, decision was made with the patient to proceed with delivery. She had primary low transverse with Pfannenstiel skin incision on 03/31/2020 by myself. She delivered a viable female infant at 1422 hours. Apgars were 8/9. No complications happened. Mom and baby were stable. Mom was put on postoperative antibiotics for prophylaxis of infection due to morbid obesity and prolonged rupture of membranes. In the postop period, she was doing well, vital signs stable and afebrile, urine output was good. On postop day #1, the patient was doing well, vital signs stable and afebrile, abdomen was soft and nontender. She was passing gas. She was advanced to a diabetic diet. Her incision was clean, dry, and intact. On postop day #2, the patient was doing well. Vital signs stable, afebrile. Physical exam was unremarkable. On postoperative day #3, 04/03/2020, she was doing well. Vital signs stable and afebrile, tolerating regular diet, breast feeding and physical exam was unremarkable. She was discharged home with pain medication, aspirin, and recommended frequent ambulation to prevent DVT and blood clots. Her discharge H and H was 10.2/30.9. She is to be seen in the office. All questions were answered.
== END 2020-04-03 12:20 | disposition home or self-care (01) | DRG 786 ==
LOC: OPB 08:53 → 4S1 08:54 → 4S2 03-31 17:35

== ENCOUNTER 2021-11-20 05:25 | Inpatient (IN) ==
--- NOTE | 2021-10-30 12:56 | History and Physical Report ---
DATE OF ADMISSION: 11/20/2021 The patient has not been admitted yet. She is scheduled for section on 11/20/2021. HISTORY OF PRESENT ILLNESS: This is a 31-year-old G2, P1, due date on 11/26/2021 making her 36 weeks today whose has been complicated by history of previous section, obesity, prepreg sandra diabetes, and 2-vessel cord. The patient wishes to have section and is scheduled to [facility] a repeat on 11/20/2021. PAST MEDICAL HISTORY: History of diabetes, obesity. PAST SURGICAL HISTORY: History of previous section. ALLERGIES: No known drug allergies. SOCIAL HISTORY: The patient denies tobacco, drug or alcohol use. FAMILY HISTORY: Noncontributory. PHYSICAL EXAMINATION: GENERAL: Well-developed, well-nourished white female in no acute distress. VITAL SIGNS: Vitals today in the office, the patient's blood pressure 124/78. HEART: S1 and S2, regular rhythm and rate. LUNGS: Clear to auscultation bilaterally. ABDOMEN: Nontender, nondistended, gravid. EXTREMITIES: No cyanosis, clubbing or edema. ASSESSMENT AND PLAN: A 31-year-old 2, para 1, at 36 weeks, due date on 11/26/2021, prior tiago arean section, wishes to have repeat section. The patient's is complicated by his tory of pregestational diabetes, 2-vessel cord and elevated body mass index. We discussed surgery in cluding risks of infection, bleeding, and damage to adjacent structures at the site of operation. e patient will sign consent on the morning of surgery with Dr. Perez. Job ID: [id number]
--- NOTE | 2021-11-12 08:36 | Anesthesiology Consultation ---
Date of Service November 12, 2021 Assessment & Plan (1) Encounter for pre-operative examination: Chart Review Chart Review: charge entry specialist initiated -Will leave BSG DOS to anesthesiologist and OB discretion (patient Type II DM) Per nursing assessment 11/12/21, patient denies any recent travel. No known Covid positive exposures or Covid related symptoms. No known Covid infection in the past 90 days. 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 Pt is fully vaccinated for Covid. Preop Covid testing scheduled 11/17/21= will await results. ECHO 08/21/21= Reason for study: Type II DM in , Class II obesity. Normal ECHO. Emergent 03/31/20 (failure to progress) = Epidural bolus-ed for c- section. History Surgery Operation Date: 11/20/21 07:15 Proposed Procedures p Repeat Section - Sage Perez MD Height/Weight Height: 5 ft 3 in Weight: 139.706 kg Allergies Allergy/AdvReac Type Severity Reaction Status Date / Time Penicillins Allergy Mild Rash Verified 11/12/21 07:50 Medications Home Medications Medication Instructions Recorded Confirmed Last Taken metformin 1,000 mg tablet 1,000 mg PO BID 03/30/20 11/12/21 03/30/20 08:00 vit no.95-ferrous 1 tab PO DAILY 03/30/20 11/12/21 03/30/20 08:00 fumarate 28 mg-folic acid 800 mcg tablet () aspirin 81 mg capsule 81 mg PO QAM 11/12/21 11/12/21 Unknown ferrous sulfate 325 mg (65 mg 325 mg PO DAILY 11/12/21 11/12/21 Unknown iron) tablet (iron) Past Medical History Medical History (Updated 11/12/21 @ 08:32 by Danielle Francis PA-C) Anemia Diabetes mellitus, type 2 Obesity Past Family History Family History Father Family history of diabetes mellitus Other No family history of adverse response to anesthesia Past Surgical History Surgical History History of section X 1 History of tooth extraction Social History Smoking Status: Never smoker Hx Alcohol Use: No Hx Substance Use: No substance use type: does not use Testing Laboratory Results 11/06/21= WBC: 11.49 H/H: 11.4/34.9 PLATELETS: 347 Electrocardiogram Date: 06/07/21 Findings: + NSR @ (78bpm) Normal EKG per cardio.
[2021-11-20] MEDS ORDERED: LACTATED RINGER'S 1,000 ML IV SCH ×3 (05:30→11:59)
[2021-11-20] MEDS ORDERED: VANCOMYCIN CONSULT ACTIVE PRN (05:35)
[2021-11-20 06:00] LABS: Hemoglobin 11.8 g/dL (12.0-16.0); Mean Corpuscular Hemoglobin 26.2 pg (25-34); Mean Corpuscular Volume 79.8 fL (80-100); Mean Platelet Volume 8.9 fL (7.4-10.4); Platelet Count 364 K/uL (130-400); RDW Coefficient of Variation 16.3 % (11.5-14.5); RDW Standard Deviation 47.5 fL (36.4-46.3); Red Blood Count 4.51 M/uL (4.2-5.4); White Blood Count 11.45 K/uL (4.8-10.8)
[2021-11-20] MEDS ORDERED: CITRIC ACID/SODIUM CITRATE 15 ML UDC PO SCH (06:00)
[2021-11-20] MEDS ORDERED: VANCOMYCIN HCL 1,500 MG in SODIUM CHLORIDE 0.9% 500 ML IV SCH (06:00)
[2021-11-20 06:01] LABS: Basophils # (auto) 0.01 K/uL (0-0.2); Basophils % (auto) 0.1 %; Eosinophils # (auto) 0.08 K/uL (0-0.5); Eosinophils % (auto) 0.7 %; Immature Granulocytes # (auto) 0.04 K/uL (0.00-0.02); Immature Granulocytes % (auto) 0.3 %; Lymphocytes # (auto) 2.39 K/uL (1.2-3.4); Lymphocytes % (auto) 20.9 %; Monocytes # (auto) 0.59 K/uL (0.11-0.59); Monocytes % (auto) 5.2 %; Neutrophils # (auto) 8.34 K/uL (1.4-6.5); Neutrophils % (auto) 72.8 %
[2021-11-20 06:20] LABS: Albumin Level 2.3 gm/dl (3.4-5.0); BUN Creatinine Ratio 19.9 (10-20); Calcium 8.8 mg/dl (8.5-10.1); Creatinine Clr Calc Pharmacy 202.5 ml/min; Est GFR (Non-African American) 125.1 ml/min; Potassium 4.2 mmol/L (3.5-5.1)
[2021-11-20 06:22] LABS: Albumin Globulin Ratio 0.5 (0.9-2); Bilirubin,Total 0.2 mg/dl (0.2-1); Globulin 4.4 gm/dl (2.5-4.0); Total Protein 6.7 gm/dl (6.4-8.2)
[2021-11-20 06:31] LABS: Mean Corpuscular Hgb Conc 32.8 g/dL (32-36)
[2021-11-20] MEDS ORDERED: MoRPHine SULFATE PF 1 MG/ML 10 ML AMP/VIAL ONE (07:30)
--- NOTE | 2021-11-20 08:59 | History & Physical Bridge Note ---
Date of Service November 20, 2021 History & Physical Bridge Note I have examined the patient, reviewed the History & Physical and in the interval since the performance of the History & Physical I have noted the following changes of clinical significance: no changes noted
[2021-11-20] MEDS ORDERED: PROMETHAZINE HCL 12.5 MG in SODIUM CHLORIDE 0.9% 50 ML IV PRN (09:40)
[2021-11-20] MEDS ORDERED: MoRPHine SULFATE PF 1 MG/ML 10 ML AMP/VIAL INT SPINAL ONE (09:40)
[2021-11-20] MEDS ORDERED: ePHEDrine sulfate 50 MG/ML AMP IV PRN (09:40)
[2021-11-20] MEDS ORDERED: NALOXONE HCL 0.08 MG in SYRINGE 1.8 ML IV PRN (09:40)
[2021-11-20] MEDS ORDERED: NALBUPHINE HCL INJ 10 MG/ML AMP IV PRN (09:40)
[2021-11-20] MEDS ORDERED: KETOROLAC 30 MG/ML VIAL IV PRN (09:40)
[2021-11-20] MEDS ORDERED: NALOXONE HCL 0.4 MG/1 ML VIAL/CARP IV PRN (09:40)
[2021-11-20] MEDS ORDERED: NALOXONE HCL 1 MG in SODIUM CHLORIDE 0.9% 1000ML 1,000 ML IV PRN (09:40)
[2021-11-20] MEDS ORDERED: MoRPHine SULFATE 2 MG/ML CARP IV PRN (09:40)
[2021-11-20] MEDS ORDERED: LACTATED RINGER'S 500 ML IV PRN (09:40)
[2021-11-20] MEDS ORDERED: diphenhydrAMINE 50 MG/ML VIAL IV PRN (09:40)
[2021-11-20] MEDS ORDERED: NO NARCOTICS OR SEDATIVES SCH (09:45)
[2021-11-20] MEDS ORDERED: SODIUM CHLORIDE 0.9% 1000ML 1,000 ML IV SCH (09:45)
[2021-11-20] MEDS ORDERED: DC INTRASPINAL MORPHINE SCH (09:45)
[2021-11-20] MEDS ORDERED: PHENYLEPHRINE 100MCG/ML 5ML SYR ONE (10:34)
[2021-11-20] MEDS ORDERED: ePHEDrine sulfate 50 MG/ML SYR ONE (10:34)
[2021-11-20] MEDS ORDERED: METOCLOPRAMIDE HCL INJ 5 MG/ML 2 ML VIAL ONE (10:34)
[2021-11-20] MEDS ORDERED: SUCCINYLCHOLINE CHLORIDE 20 MG/ML 10 ML VIAL IV ONE (10:34)
[2021-11-20] MEDS ORDERED: PROPOFOL IV EMULSION 10 MG/ML 20 ML VIAL IV ONE (10:34)
[2021-11-20] MEDS ORDERED: OXYTOCIN 10 UNITS/ML 10ML VIAL ONE (10:34)
[2021-11-20] MEDS ORDERED: ONDANSETRON INJ 2 MG/ML 2 ML VIAL ONE (10:34)
--- NOTE | 2021-11-20 10:48 | Post Operative Brief Note ---
Immediate Post Op Note v1 Date of Surgery November 20, 2021 Pre & Post Diagnosis Operation Date: 11/20/21 07:30 Pre-Op Diagnosis: Repeat elective cesaeran section. Post-Op Diagnosis: Repeat elective cesaeran section. I identified the patient and participated in the time-out.: Yes Procedure Operation Date: 11/20/21 07:30 Actual Procedures p Repeat Section live female child at 1002 in OR 3 - Sage Perez MD Surgeon Sage Perez MD [employer] Officer Dr. Medel Estimated Blood Loss 600 Findings Consistent with Post-Op Diagnosis live female Apgars 8/9 Fluids 2600 ml LR Specimens placenta Drains Chacon Catheter Anesthesia Type Spinal Complications none Disposition Accompanied Patient To Recovery: Yes Overlapping Procedure I was present for: the critical portions of procedure. I was immediately available: during the entire case. Back up surgeon: used during listed procedure.
[2021-11-20] MEDS: ONDANSETRON INJ 2 MG/ML 2 ML VIAL IV PRN ×2 (11:39→17:31)
[2021-11-20] MEDS ORDERED: MAGNESIUM HYDROXIDE SUSP 30 ML UDC PO PRN (11:59)
[2021-11-20] MEDS ORDERED: DIPHTHERIA/TETANUS/PERTUSSIS 0.5 ML SYR/VIAL IM ONE (11:59)
[2021-11-20] MEDS ORDERED: HYDROCORTISONE ACETATE 25 MG SUPP PR PRN (11:59)
[2021-11-20] MEDS ORDERED: BENZOCAINE 20% AER SPR 82.5 GM CAN EXT PRN (11:59)
[2021-11-20] MEDS ORDERED: SENNA 8.6 MG TAB PO PRN (11:59)
[2021-11-20] MEDS ORDERED: SUPERCREAM 0.870% 15 GM JAR EXT PRN (11:59)
[2021-11-20] MEDS: OXYTOCIN 20 UNITS in LACTATED RINGER'S 1,000 ML IV SCH ×2 (13:30→22:31)
--- NOTE | 2021-11-20 15:43 | Anesthesiology Progress Note ---
Date of Service November 20, 2021 Anesthesia Post Procedure Vital Signs Vital Signs: Temp Pulse Pulse Resp BP BP Pulse Ox 11/20/21 13:45 36.4 C L 82 18 104/71 99 11/20/21 13:31 79 98 11/20/21 13:26 79 123/68 98 11/20/21 13:21 85 98 11/20/21 13:16 91 H 119/62 98 11/20/21 13:11 90 98 11/20/21 13:06 88 125/60 98 11/20/21 13:01 76 98 11/20/21 12:56 91 H 120/67 98 11/20/21 12:55 36.8 C 20 11/20/21 12:51 91 H 98 11/20/21 12:46 80 99 11/20/21 12:45 86 119/67 11/20/21 12:41 82 98 11/20/21 12:36 86 115/67 98 11/20/21 12:31 92 H 98 11/20/21 12:26 80 116/64 98 11/20/21 12:25 20 11/20/21 12:23 80 116/73 11/20/21 12:21 84 99 11/20/21 12:16 83 98 11/20/21 12:11 83 98 11/20/21 12:06 79 127/60 98 11/20/21 12:01 87 98 11/20/21 11:56 100 H 146/70 H 97 11/20/21 11:55 20 11/20/21 11:51 82 97 11/20/21 11:48 82 107/55 L 11/20/21 11:46 88 98 11/20/21 11:45 20 11/20/21 11:41 83 98 11/20/21 11:36 84 130/61 98 11/20/21 11:35 20 11/20/21 11:31 82 98 11/20/21 11:26 81 111/60 99 11/20/21 11:25 20 11/20/21 11:21 74 98 11/20/21 11:16 79 111/60 98 11/20/21 11:15 20 11/20/21 11:11 86 98 11/20/21 11:06 76 104/57 L 98 11/20/21 11:05 20 11/20/21 11:01 78 99 11/20/21 10:57 78 98/57 L 11/20/21 10:56 83 98 11/20/21 10:55 36.8 C 11/20/21 07:08 79 133/72 11/20/21 07:07 36.7 C 11/20/21 05:49 36.7 C 83 18 127/65 11/20/21 05:38 36.7 C 83 18 127/65 Transfer of Care Handoff Completed per policy Notes Mental Status: alert / awake / arousable Patient Amnestic to Procedure: Yes Nausea / Vomiting: adequately controlled Pain: adequately controlled Airway Patency, RR, SpO2: stable & adequate BP & HR: stable & adequate Hydration State: stable & adequate Neuraxial Anesthesia: was administered and sensory block is resolving Anesthetic Complications: no major complications apparent
[2021-11-20] MEDS: SIMETHICONE 80 MG CHEW PO SCH ×3 (16:50→20:22)
--- NOTE | 2021-11-20 17:54 | Operative Report (OR) ---
DATE OF SURGERY: 11/20/2021 PREOPERATIVE DIAGNOSIS: Term elective repeat section. POSTOPERATIVE DIAGNOSIS: Term elective repeat section. PROCEDURE: Repeat section, low segment transverse. SURGEON: Sage Perez MD. PASTEURIZING MACHINE OPERATOR: Jose Medel MD. ANESTHESIA: Spinal. COMPLICATIONS: None. FINDINGS: Live female, Apgars were 8 and 9, vertex. SPECIMENS: Placenta and cord blood. ESTIMATED BLOOD LOSS: 600 mL. TOTAL FLUIDS: 2600 mL. URINE OUTPUT: 150 mL. CLINICAL HISTORY: The patient is a 31-year-old female, para 1-0-0-1, at 39 weeks and 1 day, admitted for an elective repeat section. The patient was given informed consent. Timeout was green d prior to the start of the procedure and antibiotics were given preop. DESCRIPTION OF PROCEDURE: Under satisfactory spinal anesthesia, the patient was prepped and draped i n the usual sterile fashion. A Pfannenstiel incision through a prior incision was then made, carryin g this down through various layers. Upon entering into the abdominal layer, the large Gerard retract or was inserted. The bladder blade was then entered. A low segment transverse incision over the low er uterine segment high up was made without a bladder flap. The amniotic sac was nicked, was clear. The incision was widened in the AP diameter. The was then delivered with the aid of fundal p ressure from the vertex presentation with a live female. Delayed cord clamping was accomplished and after 1 minute, a live female with cord was clamped and cut. Apgars were 8 and 9, weight pendi ng. Cord blood was obtained. Placenta was then delivered spontaneously and intact and sent for path ology. The uterus was then exteriorized. Ring forceps were then placed on both angles in the inferior see n. Another ring was used to dilate the cervix. Lap pad was used to clean out the debris of the uteru s. No active bleeding was noted. Pitocin was started in the IV. The uterus was closed in a double layer closure with 0 Vicryl suture in a continuous interlocking fashion followed by a second imbricat ing suture. No active bleeding was noted. The tubes, ovaries bilaterally were found to be within no rmal limits. The contents of the pelvic and abdominal cavity were then irrigated. The initial spong e and needle count being correct, the Gerard retractor was removed. The muscle was then reapproximated with 0 Vicryl suture in a umdhni-gr-kcdeh fashion interrupted. Th e fascia was then reapproximated from both ends using #1 Vicryl suture in a continuous fashion. Subc uticular space was closed with 3-0 plain suture, was then irrigated. Another subcuticular layer was closed with 3-0 Vicryl as a running stitch and then the skin was reapproximated with 4-0 [address]oc[address] sut ure. At the end of the procedure, the final sponge, needle and instrument counts were found to be co rrect. Steri-Strips were applied to the wound and the RAMON dressing was applied. Clear urine was no jorge. Estimated blood loss 600 mL. The patient was then placed supine on a stretcher and taken to re covery room in stable condition. ADDENDUM: Dr. Medel was necessary and needed for retraction, visualization and assist at delivery and closure of the abdomen. Job ID: [id number]
[2021-11-20] MEDS: DOCUSATE SODIUM 100 MG CAP PO SCH (20:22)
[2021-11-21] MEDS ORDERED: ONDANSETRON INJ 2 MG/ML 2 ML VIAL IV PRN (03:43)
[2021-11-21] MEDS ORDERED: KETOROLAC 30 MG/ML VIAL IV PRN (03:43)
[2021-11-21] MEDS ORDERED: diphenhydrAMINE Capsule 25 MG CAP PO PRN (03:43)
[2021-11-21] MEDS ORDERED: MEPERIDINE HCL 50 MG/ML CARP IV PRN (03:43)
[2021-11-21] MEDS ORDERED: oxyCODONE/ACETAMINOPHEN 5mg/325mg TAB PO PRN (03:43)
[2021-11-21] MEDS ORDERED: diphenhydrAMINE 50 MG/ML VIAL IV PRN (03:43)
[2021-11-21] MEDS ORDERED: PROMETHAZINE HCL 25 MG in SODIUM CHLORIDE 0.9% 50 ML IV PRN (03:43)
[2021-11-21] MEDS ORDERED: Nursing to Pharmacy Communication SCH (04:45)
[2021-11-21] MEDS ORDERED: VANCOMYCIN HCL 1,000 MG/270 ML BAG IV SCH (06:00)
[2021-11-21 06:10] LABS: Basophils # (auto) 0.01 K/uL (0-0.2); Basophils % (auto) 0.1 %; Eosinophils # (auto) 0.07 K/uL (0-0.5); Eosinophils % (auto) 0.7 %; Hematocrit (blood only) 31.5 % (37-47); Hemoglobin 10.1 g/dL (12.0-16.0); Immature Granulocytes # (auto) 0.03 K/uL (0.00-0.02); Immature Granulocytes % (auto) 0.3 %; Lymphocytes # (auto) 1.31 K/uL (1.2-3.4); Lymphocytes % (auto) 13.4 %; Mean Corpuscular Hemoglobin 25.9 pg (25-34); Mean Corpuscular Hgb Conc 32.1 g/dL (32-36); Mean Corpuscular Volume 80.8 fL (80-100); Mean Platelet Volume 8.6 fL (7.4-10.4); Monocytes # (auto) 0.51 K/uL (0.11-0.59); Monocytes % (auto) 5.2 %; Neutrophils # (auto) 7.81 K/uL (1.4-6.5); Neutrophils % (auto) 80.3 %; Platelet Count 271 K/uL (130-400); RDW Coefficient of Variation 16.5 % (11.5-14.5); RDW Standard Deviation 48.6 fL (36.4-46.3); White Blood Count 9.74 K/uL (4.8-10.8)
--- NOTE | 2021-11-21 07:40 | Obstetrical Progress Note ---
Date of Service November 21, 2021 Assessment & Plan Admission and Anticipated Discharge Date Admission Date: November 20, 2021 Subjective Patient is seen and examined. She feels well, no complaints. Pain is under control with oral meds. Ambulating without dizziness Voiding without difficulty Tolerating clear diet with out N&V Flatus neg Bleeding is minimal No fever/ chills/ CP/ SOB/ N&V/ Leg pain Bottle feeding without problems Vital Signs Temp Pulse Resp BP Pulse Ox 11/21/21 07:34 36.7 C 86 20 104/71 98 11/21/21 04:10 36.6 C 90 18 112/78 99 11/21/21 03:45 18 99 11/21/21 03:00 18 98 11/21/21 02:00 18 97 11/21/21 01:00 18 98 11/21/21 00:05 36.6 C 94 H 18 119/81 100 11/21/21 00:00 18 100 11/20/21 23:00 18 100 11/20/21 22:00 18 100 11/20/21 21:00 18 100 11/20/21 20:20 36.6 C 83 18 123/76 100 11/20/21 20:00 18 100 Intake & Output 11/20/21 11/21/21 11/21/21 22:59 06:59 14:59 Intake Total 1362 / 4689.083 727.083 / 4689.083 Output Total 1050 / 2850 600 / 2850 Balance 312 / 1839.083 127.083 / 1839.083 Intake: IV 1002 / 1729.083 727.083 / 1729.083 Oxytocin 20 units In Lactated 1002 / 1729.083 727.083 / 1729.083 Ringer's 1,000 ml @ 125 mls/hr IV .Q8H1M [facility] Rx#:[id number] Oral 360 / 360 Output: Emesis 550 / 750 Urine Amount (Catheter) 500 / 1500 600 / 1500 Chacon/Indwelling 500 / 1500 600 / 1500 Lab Results 11/20/21 11/20/21 11/20/21 Range/Units 05:45 05:45 05:45 WBC 11.45 H (4.8-10.8) K/uL RBC 4.51 (4.2-5.4) M/uL Hgb 11.8 L (12.0-16.0) g/dL Hct 36.0 L (37-47) % MCV 79.8 L (80-100) fL MCH 26.2 (25-34) pg MCHC 32.8 (32-36) g/dL RDW Std Deviation 47.5 H (36.4-46.3) fL RDW Coeff of Eugenia 16.3 H (11.5-14.5) % Plt Count 364 (130-400) K/uL MPV 8.9 (7.4-10.4) fL Immature Gran % (Auto) 0.3 % Neut % (Auto) 72.8 % Lymph % (Auto) 20.9 % Wharton % (Auto) 5.2 % Eos % (Auto) 0.7 % Baso % (Auto) 0.1 % Neut # (Auto) 8.34 H (1.4-6.5) K/uL Lymph # (Auto) 2.39 (1.2-3.4) K/uL Wharton # (Auto) 0.59 (0.11-0.59) K/uL Eos # (Auto) 0.08 (0-0.5) K/uL Baso # (Auto) 0.01 (0-0.2) K/uL Immature Gran # (Auto) 0.04 H (0.00-0.02) K/uL Sodium 136 (136-145) mmol/L Potassium 4.2 (3.5-5.1) mmol/L Chloride 107 (98-107) mmol/L Carbon Dioxide 22 (21-32) mmol/L Anion Gap 7.0 (3-11) BUN 11 (7-18) mg/dl Creatinine 0.56 L (0.6-1.2) mg/dl Est Cr Clr Drug Dosing 202.5 ml/min Est GFR ( Amer) 145.0 ml/min Est GFR (Non-Af Amer) 125.1 ml/min BUN/Creatinine Ratio 19.9 (10-20) Glucose 82 (70-99) mg/dl POC Glucose (70-99) mg/dl Calcium 8.8 (8.5-10.1) mg/dl Total Bilirubin 0.2 (0.2-1) mg/dl AST 11 L (15-37) U/L ALT 18 (12-78) Alkaline Phosphatase 81 (45-117) U/L Total Protein 6.7 (6.4-8.2) gm/dl Albumin 2.3 L (3.4-5.0) gm/dl Globulin 4.4 H (2.5-4.0) gm/dl Albumin/Globulin Ratio 0.5 L (0.9-2) Blood Type A Positive Antibody Screen NEGATIVE 11/20/21 11/20/21 11/21/21 Range/Units 11:26 17:40 06:01 WBC 9.74 (4.8-10.8) K/uL RBC 3.90 L (4.2-5.4) M/uL Hgb 10.1 L (12.0-16.0) g/dL Hct 31.5 L (37-47) % MCV 80.8 (80-100) fL MCH 25.9 (25-34) pg MCHC 32.1 (32-36) g/dL RDW Std Deviation 48.6 H (36.4-46.3) fL RDW Coeff of Eugenia 16.5 H (11.5-14.5) % Plt Count 271 (130-400) K/uL MPV 8.6 (7.4-10.4) fL Immature Gran % (Auto) 0.3 % Neut % (Auto) 80.3 % Lymph % (Auto) 13.4 % Wharton % (Auto) 5.2 % Eos % (Auto) 0.7 % Baso % (Auto) 0.1 % Neut # (Auto) 7.81 H (1.4-6.5) K/uL Lymph # (Auto) 1.31 (1.2-3.4) K/uL Wharton # (Auto) 0.51 (0.11-0.59) K/uL Eos # (Auto) 0.07 (0-0.5) K/uL Baso # (Auto) 0.01 (0-0.2) K/uL Immature Gran # (Auto) 0.03 H (0.00-0.02) K/uL Sodium (136-145) mmol/L Potassium (3.5-5.1) mmol/L Chloride (98-107) mmol/L Carbon Dioxide (21-32) mmol/L Anion Gap (3-11) BUN (7-18) mg/dl Creatinine (0.6-1.2) mg/dl Est Cr Clr Drug Dosing ml/min Est GFR ( Amer) ml/min Est GFR (Non-Af Amer) ml/min BUN/Creatinine Ratio (10-20) Glucose (70-99) mg/dl POC Glucose 83 99 (70-99) mg/dl Calcium (8.5-10.1) mg/dl Total Bilirubin (0.2-1) mg/dl AST (15-37) U/L ALT (12-78) Alkaline Phosphatase (45-117) U/L Total Protein (6.4-8.2) gm/dl Albumin (3.4-5.0) gm/dl Globulin (2.5-4.0) gm/dl Albumin/Globulin Ratio (0.9-2) Blood Type Antibody Screen PE: General: Alert, orientedx3, NAD CVS: S1S2 RRR Lungs; CTAB Abd: soft, NT, ND, BS+, fundus firm, below Umbilicus Incision/ Dressing: Clean, dry, intact Perineum intact, Lochia rubra minimal Ext; NT, no edema AP: 31 yo s/p C Section, pod# 1 VSS Afebrile doing well Continue routine postop care Encourage ambulation, PO intake All questions were answered D/C home tomorrow Results & Data ([facility]) Vital Signs (Past 12 Hours) Vital Signs Temp Pulse Resp BP Pulse Ox 11/21/21 07:34 36.7 C 86 20 104/71 98 11/21/21 04:10 36.6 C 90 18 112/78 99 11/21/21 03:45 18 99 11/21/21 03:00 18 98 11/21/21 02:00 18 97 11/21/21 01:00 18 98 11/21/21 00:05 36.6 C 94 H 18 119/81 100 11/21/21 00:00 18 100 11/20/21 23:00 18 100 11/20/21 22:00 18 100 11/20/21 21:00 18 100 11/20/21 20:20 36.6 C 83 18 123/76 100 11/20/21 20:00 18 100
[2021-11-21] MEDS: SIMETHICONE 80 MG CHEW PO SCH ×4 (08:00→21:06)
[2021-11-21] MEDS: PRENATAL VITAMIN 1 TAB PO SCH (08:00)
[2021-11-21] MEDS: FERROUS SULFATE 325 MG TAB PO SCH (08:00)
[2021-11-21] MEDS: metFORMIN HCL 500 MG TAB PO SCH ×2 (08:00→16:38)
[2021-11-21] MEDS: DOCUSATE SODIUM 100 MG CAP PO SCH ×2 (08:00→21:06)
[2021-11-21] MEDS ORDERED: NON-FORMULARY MEDICATION (Ferrous Sulfate [Iron] 325 mg (65 mg iron) Tablet) PO SCH (09:00)
[2021-11-21] MEDS ORDERED: NON-FORMULARY MEDICATION (Pnv Cmb#95-Ferrous Fumarate-Fa [Prenatal] 28 mg iron- 800 mcg Ta PO SCH (09:00)
[2021-11-21] MEDS: IBUPROFEN 600 MG TAB PO PRN ×2 (13:55→21:06)
[2021-11-21] MEDS ORDERED: bisacodyL 5 MG TABEC PO SCH (20:00)
[2021-11-22] MEDS: IBUPROFEN 600 MG TAB PO PRN ×2 (03:49→08:19)
[2021-11-22 07:23] LABS: Hematocrit (blood only) 31.4 % (37-47)
[2021-11-22] MEDS: SIMETHICONE 80 MG CHEW PO SCH (08:18)
[2021-11-22] MEDS: PRENATAL VITAMIN 1 TAB PO SCH (08:18)
[2021-11-22] MEDS: DOCUSATE SODIUM 100 MG CAP PO SCH (08:18)
[2021-11-22] MEDS: FERROUS SULFATE 325 MG TAB PO SCH (08:18)
[2021-11-22] MEDS: metFORMIN HCL 500 MG TAB PO SCH (08:18)
--- NOTE | 2021-11-22 08:43 | Obstetrical Progress Note ---
Date of Service November 22, 2021 Subjective Ambulation: ambulating normally Voiding: no voiding problems Passing Gas:: Yes Diet Tolerance:: regular diet Feeding Type:: breast feeding Current Pain Level(1-10): 0 Physical Exam Constitutional WD/WN, vitals as above comfortable abdomen soft and non-tender incision c/d/i no edema neg Marco Antonio's for d/c f/u next week in office Results & Data ([facility]) Vital Signs (Past 12 Hours) Vital Signs Temp Pulse Pulse Resp BP Pulse Ox 11/22/21 07:30 36.5 C 88 16 125/85 97 11/21/21 23:55 36.6 C 89 18 110/69 98 Laboratory Results Laboratory Results - last 72 hr 11/20/21 11/20/21 11/20/21 05:45 05:45 05:45 WBC 11.45 H RBC 4.51 Hgb 11.8 L Hct 36.0 L MCV 79.8 L MCH 26.2 MCHC 32.8 RDW Std Deviation 47.5 H RDW Coeff of Eugenia 16.3 H Plt Count 364 MPV 8.9 Immature Gran % (Auto) 0.3 Neut % (Auto) 72.8 Lymph % (Auto) 20.9 [place] % (Auto) 5.2 Eos % (Auto) 0.7 Baso % (Auto) 0.1 Neut # (Auto) 8.34 H Lymph # (Auto) 2.39 [place] # (Auto) 0.59 Eos # (Auto) 0.08 Baso # (Auto) 0.01 Immature Gran # (Auto) 0.04 H Sodium 136 Potassium 4.2 Chloride 107 Carbon Dioxide 22 Anion Gap 7.0 BUN 11 Creatinine 0.56 L Est Cr Clr Drug Dosing 202.5 Est GFR ( Amer) 145.0 Est GFR (Non-Af Amer) 125.1 BUN/Creatinine Ratio 19.9 Glucose 82 POC Glucose Calcium 8.8 Total Bilirubin 0.2 AST 11 L ALT 18 Alkaline Phosphatase 81 Total Protein 6.7 Albumin 2.3 L Globulin 4.4 H Albumin/Globulin Ratio 0.5 L Blood Type A Positive Antibody Screen NEGATIVE 11/20/21 11/20/21 11/21/21 11:26 17:40 06:01 WBC 9.74 RBC 3.90 L Hgb 10.1 L Hct 31.5 L MCV 80.8 MCH 25.9 MCHC 32.1 RDW Std Deviation 48.6 H RDW Coeff of Eugenia 16.5 H Plt Count 271 MPV 8.6 Immature Gran % (Auto) 0.3 Neut % (Auto) 80.3 Lymph % (Auto) 13.4 [place] % (Auto) 5.2 Eos % (Auto) 0.7 Baso % (Auto) 0.1 Neut # (Auto) 7.81 H Lymph # (Auto) 1.31 [place] # (Auto) 0.51 Eos # (Auto) 0.07 Baso # (Auto) 0.01 Immature Gran # (Auto) 0.03 H Sodium Potassium Chloride Carbon Dioxide Anion Gap BUN Creatinine Est Cr Clr Drug Dosing Est GFR ( Amer) Est GFR (Non-Af Amer) BUN/Creatinine Ratio Glucose POC Glucose 83 99 Calcium Total Bilirubin AST ALT Alkaline Phosphatase Total Protein Albumin Globulin Albumin/Globulin Ratio Blood Type Antibody Screen 11/22/21 06:57 WBC RBC Hgb 10.0 L Hct 31.4 L MCV MCH MCHC RDW Std Deviation RDW Coeff of Eugenia Plt Count MPV Immature Gran % (Auto) Neut % (Auto) Lymph % (Auto) [place] % (Auto) Eos % (Auto) Baso % (Auto) Neut # (Auto) Lymph # (Auto) [place] # (Auto) Eos # (Auto) Baso # (Auto) Immature Gran # (Auto) Sodium Potassium Chloride Carbon Dioxide Anion Gap BUN Creatinine Est Cr Clr Drug Dosing Est GFR ( Amer) Est GFR (Non-Af Amer) BUN/Creatinine Ratio Glucose POC Glucose Calcium Total Bilirubin AST ALT Alkaline Phosphatase Total Protein Albumin Globulin Albumin/Globulin Ratio Blood Type Antibody Screen
[2021-11-22] MEDS ORDERED: bisacodyL 10 MG SUPP PR PRN (11:03)
--- NOTE | 2021-11-30 09:54 | Discharge Summary (DS) ---
DATE OF ADMISSION: 11/20/2021 DATE OF DISCHARGE: 11/22/2021 REASON FOR ADMISSION AND HOSPITAL COURSE: The patient is a 31-year-old female, para 1-0-0-1, at 39 w eeks and 1 day, admitted for elective repeat section. Hospital course was unremarkable. Th e patient had a repeat section under spinal anesthesia, delivering a live female, Apgars wer e 8 and 9, weight was pending. The hospital course was uncomplicated and the patient was disch arged home in stable condition. Medications include Percocet and Motrin. Regular diet on discharge and followup will be in 1 week for incision check. Job ID: [id number]
== END 2021-11-22 11:56 | disposition home or self-care (01) | DRG 788 ==
LOC: ASU 05:25 → 4S1 05:26 → 4S2 14:06